=== PATIENT | female | born 1950 | race Caucasian/White ===

== ENCOUNTER 2021-04-07 15:03 | Outpatient (CLI) | payer MEDICARE ==
--- NOTE | 2021-04-07 16:52 | XRAY Report ---
PROCEDURE: Hip w/Pelvis 2-3V RT INDICATIONS: PAIN IN RIGHT HIP TECHNIQUE: AP pelvis with lateral view(s) of the bilateral hip(s). COMPARISON: None. FINDINGS: Bones: No fractures or dislocations. Pelvic ring appears intact. No suspicious bony lesions. Mode rate bilateral hip joint space narrowing and periarticular osteophyte formation. Osteitis pubis. Soft tissues: The visualized bowel gas pattern is normal. No suspicious soft tissue calcifications. IMPRESSION: 1. Bilateral hip osteoarthritis. 2. Osteitis pubis. 3. No acute fracture. No osseous lesion. If symptoms and/or clinical suspicion for pathology continue , further assessment with repeat plain films, or advanced imaging (e.g., CT, MRI, or bone scan) is re commended for further assessment. Reviewed by: Dwight White MD on 04/07/2021 4:50 PM PST Approved by: Dwight White MD on 04/07/2021 4:50 PM PST Station ID: [id number]
== END 2021-04-07 15:04 | disposition home or self-care (01) ==
LOC: DI 15:03
PROVIDERS: ATTEND Internal Medicine
DX: M16.0 Bilateral primary osteoarthritis of hip (principal)

== ENCOUNTER 2021-12-22 09:52 | Outpatient (CLI) | payer MEDICARE ==
[2021-12-22 10:15] LABS: BASOPHILS % (AUTO) 0.4 %; EOSINOPHILS # (AUTO) 0.1 10^3/uL (0.0-0.7); EOSINOPHILS % (AUTO) 2.6 %; HCT - HEMATOCRIT 30.6 % (37.0-47.0); HGB - HEMOGLOBIN 10.3 g/dL (12.0-16.0); LYMPHOCYTES % (AUTO) 19.2 %; MEAN CORPUSCULAR HEMOGLOBIN 30.4 pg (27.0-31.0); MEAN CORPUSCULAR HGB CONC 33.7 g/dL (32.0-36.0); MEAN CORPUSCULAR VOLUME 90.3 fL (81.0-99.0); MEAN PLATELET VOLUME 8.4 fL (7.9-10.8); MONOCYTES # (AUTO) 0.4 10^3/uL (0.0-1.0); MONOCYTES % (AUTO) 8.2 %; NEUTROPHILS # (AUTO) 3.7 10^3/uL (1.5-6.6); NEUTROPHILS % (AUTO) 69.2 %; PLT - PLATELET COUNT 232 10^3/uL (130-450); RED BLOOD COUNT 3.39 10^6/uL (4.20-5.40); RED CELL DISTRIBUTION WIDTH 12.9 % (12.0-15.0); WHITE BLOOD COUNT 5.4 x10^3/uL (4.8-10.8)
[2021-12-22 10:23] LABS: BILIRUBIN,URINE NEGATIVE (NEGATIVE); GLUCOSE, URINE (UA) NEGATIVE (NEGATIVE); KETONES,URINE (UA) NEGATIVE (NEGATIVE); LEUKOCYTE ESTERASE, URINE NEGATIVE (NEGATIVE); NITRITE,URINE NEGATIVE (NEGATIVE); OCCULT BLOOD,URINE NEGATIVE (NEGATIVE); PH,URINE 5.5 PH (5.0-7.5); PROTEIN,URINE NEGATIVE (NEGATIVE); UROBILINOGEN,URINE 0.2 (NORMAL) E.U./dL (NORMAL)
[2021-12-22 10:31] LABS: CREATININE,URINE 184.3 mg/dL; MICROALBUM/CREATININE RATIO,UR 8.1 ug/mg (<30.0); MICROALBUMIN,URINE 1.5 mg/dL (0-300.0)
[2021-12-22 10:36] LABS: ALBUMIN 4.2 g/dL (3.2-5.5); ALBUMIN/GLOBULIN RATIO 1.4 (1.0-2.2); ALKALINE PHOSPHATASE 51 IU/L (42-121); ALT ALANINE AMINOTRANSFERASE 26 IU/L (10-60); AST ASPARTATE AMINOTRANSFERASE 16 IU/L (10-42); BUN - BLOOD UREA NITROGEN 39 mg/dL (6-20); CALCIUM 9.4 mg/dL (8.5-10.3); CARBON DIOXIDE - CO2 26 mmol/L (21-32); CHLORIDE 100 mmol/L (101-111); CHOL/HDL RATIO 6.9 (<4.4); CHOLESTEROL 247 mg/dL; CREATININE 1.6 mg/dL (0.4-1.0); GFR - MDRD 32 (>89); GLUCOSE 175 mg/dL (70-100); HDL CHOLESTEROL 36 mg/dL; LDL CHOLESTEROL,CALCULATED 162 mg/dL; LDL/HDL RATIO 4.5 (<4.4); POTASSIUM 4.5 mmol/L (3.5-5.0); SODIUM 135 mmol/L (135-145); TOTAL PROTEIN 7.1 g/dL (6.7-8.2); TRIGLYCERIDES 243 mg/dL; VLDL CHOLESTEROL 49 mg/dL
[2021-12-22 10:40] LABS: BACTERIA,URINE Few /HPF (None Seen); CLARITY,URINE CLEAR (CLEAR); RBC,URINE None Seen /HPF (0-5); SQUAMOUS EPITHELIAL CELL,UR FEW Squamous (<= Few); WBC,URINE 0-3 /HPF (0-5)
[2021-12-22 12:58] LABS: ESTIMATED AVERAGE GLUCOSE 169 mg/dL (70-100); HEMOGLOBIN A1c% 7.5 % (4.27-6.07)
[2021-12-23 08:10] LABS: HCV AB 0.2 s/co ratio (0.0-0.9)
== END 2021-12-22 09:53 | disposition home or self-care (01) ==
LOC: LAB 09:52
PROVIDERS: ATTEND Internal Medicine
DX: E11.9 Type 2 diabetes mellitus without complications (principal); I10 Essential (primary) hypertension; N32.81 Overactive bladder; Z79.899 Other long term (current) drug therapy; Z11.59 Encounter for screening for other viral diseases
CPT/HCPCS: 36415; 80053; 80061; 81001; 82043; 82570; 83036; 83721; 84443; 85025; 86803; 87086

== ENCOUNTER 2022-01-24 08:00 | Outpatient (CLI) | payer MEDICARE ==
--- NOTE | 2022-01-25 10:02 | XRAY Report ---
PROCEDURE: Hip 2 View RT INDICATIONS: ] Vein TECHNIQUE: Two views of the hip were acquired. COMPARISON: None. FINDINGS: Moderate bilateral hip osteoarthritis with joint space narrowing and subchondral sclerosis and subcho ndral cystic change. Marginal osteophytes noted. IMPRESSION: Moderate bilateral hip osteoarthritis. Reviewed by: George Mcneal MD on 01/25/2022 10:00 AM PDT Approved by: George Mcneal MD on 01/25/2022 10:00 AM PDT Station ID: [id number]
== END 2022-01-24 23:59 | disposition home or self-care (01) ==
LOC: DI.WOS 08:00
PROVIDERS: ATTEND Physician Assistant
DX: M16.11 Unilateral primary osteoarthritis, right hip (principal)

== ENCOUNTER 2022-07-04 15:23 | Emergency (ER) | payer MEDICARE ==
[2022-07-04] MEDS ORDERED: KETOROLAC 60 MG/2 ML VIAL IM STA (15:42)
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
--- NOTE | 2022-07-04 16:29 | CT Report ---
PROCEDURE: PELVIS WO INDICATIONS: fall, coccys/hip inj TECHNIQUE: Noncontrast 3 mm axial sections acquired through the bony pelvis, with coronal and sagittal reformatt ing. For radiation dose reduction, the following was used: automated exposure control, adjustment of mA and/or kV according to patient size. COMPARISON: Right hip radiograph dated 01/24/2022. FINDINGS: Image quality: Excellent. Bones: Pelvic ring is intact. No acute pelvic or hip fracture. No hip dislocation. No acute sacral o r coccygeal fracture. Sacral and coccygeal alignment is anatomic. Osteoarthritic changes are noted in bilateral hip joints. No evidence of avascular necrosis of femoral head. Osteoarthritic changes also seen in bilateral sacroiliac joints and symphysis pubis. No ankylosis or bony erosion is seen. Degen erative disc disease in visualized lower lumbar spine is seen. No acute vertebral body compression fr acture. 7 mm anterolisthesis of L4 on L5 is seen. Soft tissues: There is no presacral soft tissue abnormalities. No pelvic free fluid of free air. No abnormal bowel wall thickening. Sigmoid diverticulosis is seen without colonic wall thickening or mes enteric fat stranding. Uterus and bilateral adnexa show no gross abnormality. Bladder wall thickness is normal. No abnormality is seen in pelvic or hip soft tissues. No abnormal soft tissue calcificatio ns. IMPRESSION: 1. No evidence of acute coccygeal fracture. No acute pelvic or hip fracture. No hip dislocation. 2. Osteoarthritic changes throughout bony pelvis. No evidence of avascular necrosis of femoral head. 3. Degenerative disc disease in visualized lower lumbar spine. Grade 1 anterolisthesis of L4 on L5. 4. No gross pelvic or hip soft tissue abnormalities. Reviewed by: Paul Little MD on 07/04/2022 4:28 PM PST Approved by: Paul Little MD on 07/04/2022 4:28 PM PST Station ID: [id number]
[2022-07-04 16:59] VITALS: BP 140/80
== END 2022-07-04 16:58 | disposition home or self-care (01) ==
LOC: ED 15:23
DX: S20.229A Contusion of unspecified back wall of thorax, initial encounter (principal); W08.XXXA Fall from other furniture, initial encounter; Y93.89 Activity, other specified
CPT/HCPCS: 96372; 99283; 99284

== ENCOUNTER 2022-10-19 13:59 | Outpatient (CLI) | payer MEDICARE ==
--- NOTE | 2022-10-31 10:19 | Mammography Report ---
BILATERAL DIGITAL SCREENING MAMMOGRAM 3D/2D WITH AUGMENTATION: 10/19/2022 CLINICAL: Routine screening. Personal history of right breast cancer. No prior exams were available for comparison. There are scattered areas of fibroglandular density in both breasts (category b / 25%-50% glandular t issue). Bilateral breast implants are present. There are benign post operative findings and biopsy clip in t he right breast. No significant masses, calcifications, or other findings are seen in either breast. IMPRESSION: BENIGN There is no mammographic evidence of malignancy. A 1 year screening mammogram is recommended. This exam was interpreted at Station ID: [id number]. NOTE: For mammograms, a report in lay terms will be sent to the patient. Approximately 15% of breast malignancies will not be visualized mammographically. In the management of a palpable breast mass, a negative mammogram must not discourage biopsy of a clinically suspicious lesion. Electronically Signed By: Carlos Rainey M.D. at/sen:10/28/2022 10:31:33 letter sent: No_Letter ACR BI-RADS Category 2: Benign Finding(s) 3342F PARENCHYMAL PATTERN: (A) - The breast(s) demonstrate(s) scattered fibroglandular densities. BI-RADS CATEGORY: (2) - 2 Mammogram [id number] 1 year screening LATERALITY: (B)
== END 2022-10-19 14:00 | disposition home or self-care (01) ==
LOC: DI 13:59
DX: Z12.31 Encounter for screening mammogram for malignant neoplasm of breast (principal); Z85.3 Personal history of malignant neoplasm of breast

== ENCOUNTER 2022-10-31 10:38 | Outpatient (CLI) | payer MEDICARE ==
[2022-10-31 10:52] LABS: HGB - HEMOGLOBIN 10.3 g/dL (12.0-16.0); MEAN PLATELET VOLUME 8.9 fL (7.9-10.8); MONOCYTES # (AUTO) 0.4 10^3/uL (0.0-1.0)
[2022-10-31 10:56] LABS: BASOPHILS % (AUTO) 0.5 %; EOSINOPHILS # (AUTO) 0.4 10^3/uL (0.0-0.7); EOSINOPHILS % (AUTO) 7.1 %; HCT - HEMATOCRIT 32.3 % (37.0-47.0); LYMPHOCYTES % (AUTO) 17.8 %; MEAN CORPUSCULAR HEMOGLOBIN 30.2 pg (27.0-31.0); MEAN CORPUSCULAR HGB CONC 31.9 g/dL (32.0-36.0); MEAN CORPUSCULAR VOLUME 94.7 fL (81.0-99.0); MONOCYTES % (AUTO) 6.4 %; NEUTROPHILS # (AUTO) 3.7 10^3/uL (1.5-6.6); NEUTROPHILS % (AUTO) 67.8 %; PLT - PLATELET COUNT 259 10^3/uL (130-450); RED BLOOD COUNT 3.41 10^6/uL (4.20-5.40); RED CELL DISTRIBUTION WIDTH 12.9 % (12.0-15.0); WHITE BLOOD COUNT 5.5 x10^3/uL (4.8-10.8)
[2022-10-31 11:00] LABS: BILIRUBIN,URINE NEGATIVE (NEGATIVE); GLUCOSE, URINE (UA) NEGATIVE (NEGATIVE); KETONES,URINE (UA) NEGATIVE (NEGATIVE); LEUKOCYTE ESTERASE, URINE NEGATIVE (NEGATIVE); NITRITE,URINE NEGATIVE (NEGATIVE); OCCULT BLOOD,URINE NEGATIVE (NEGATIVE); PH,URINE 5.5 PH (5.0-7.5); PROTEIN,URINE NEGATIVE (NEGATIVE); UROBILINOGEN,URINE 0.2 (NORMAL) E.U./dL (NORMAL)
[2022-10-31 11:11] LABS: ALBUMIN/GLOBULIN RATIO 1.3 (1.0-2.2); ALKALINE PHOSPHATASE 52 IU/L (42-121); ALT ALANINE AMINOTRANSFERASE 21 IU/L (10-60); AST ASPARTATE AMINOTRANSFERASE 17 IU/L (10-42); BILIRUBIN,TOTAL 0.7 mg/dL (0.2-1.0); BUN - BLOOD UREA NITROGEN 42 mg/dL (6-20); CALCIUM 8.9 mg/dL (8.5-10.3); CARBON DIOXIDE - CO2 27 mmol/L (21-32); CHLORIDE 104 mmol/L (101-111); CHOL/HDL RATIO 7.2 (<4.4); CHOLESTEROL 275 mg/dL; CREATININE 1.5 mg/dL (0.4-1.0); CREATININE,URINE 24.2 mg/dL; GFR - MDRD 34 (>89); GLUCOSE 152 mg/dL (70-100); HDL CHOLESTEROL 38 mg/dL; LDL CHOLESTEROL,CALCULATED 181 mg/dL; LDL/HDL RATIO 4.8 (<4.4); MAGNESIUM 2.2 mg/dL (1.7-2.8); MICROALBUM/CREATININE RATIO,UR 16.5 ug/mg (<30.0); MICROALBUMIN,URINE 0.4 mg/dL (0-300.0); POTASSIUM 4.8 mmol/L (3.5-5.0); SODIUM 137 mmol/L (135-145); TOTAL PROTEIN 7.2 g/dL (6.7-8.2); TRIGLYCERIDES 278 mg/dL; VLDL CHOLESTEROL 56 mg/dL
[2022-10-31 11:23] LABS: CLARITY,URINE CLEAR (CLEAR)
[2022-10-31 11:24] LABS: BACTERIA,URINE Rare /HPF (None Seen); RBC,URINE 0-5 /HPF (0-5); SQUAMOUS EPITHELIAL CELL,UR NONE SEEN (<= Few); WBC,URINE 0-3 /HPF (0-5)
[2022-10-31 14:28] LABS: ESTIMATED AVERAGE GLUCOSE 143 mg/dL (70-100); HEMOGLOBIN A1c% 6.6 % (4.27-6.07)
== END 2022-10-31 10:39 | disposition home or self-care (01) ==
LOC: LAB 10:38
PROVIDERS: ATTEND Internal Medicine
DX: I12.9 Hypertensive chronic kidney disease with stage 1 through stage 4 chronic kidney disease, or unspecified chronic kidney disease (principal); E11.22 Type 2 diabetes mellitus with diabetic chronic kidney disease; N18.9 Chronic kidney disease, unspecified; D64.9 Anemia, unspecified; C44.91 Basal cell carcinoma of skin, unspecified; C50.919 Malignant neoplasm of unspecified site of unspecified female breast; E78.5 Hyperlipidemia, unspecified; R00.2 Palpitations; Z79.899 Other long term (current) drug therapy
CPT/HCPCS: 36415; 80053; 80061; 81001; 82043; 82570; 83036; 83721; 83735; 84443; 85025; 87086

== ENCOUNTER 2023-03-30 13:26 | Outpatient (CLI) | payer MEDICARE ==
--- NOTE | 2023-03-30 16:48 | XRAY Report ---
PROCEDURE: Lumbar Spine 2 View INDICATIONS: LOW BACK PAIN TECHNIQUE: 3 views of the lumbar spine were acquired. COMPARISON: None. FINDINGS: Bones: 5 yxv-ada-nyhxyha vertebrae are present. There is normal bony alignment. No vertebral body compression fractures. No suspicious bony lesions. Multilevel disc space narrowing and endplate ost eophyte formation, as well as facet hypertrophy. 10 mm of anterolisthesis of L4 on L5. Soft tissues: Overlying bowel gas pattern is normal. No suspicious soft tissue calcifications. IMPRESSION: 1. Multilevel degenerative disc and facet disease. 2. No acute fracture. No osseous lesion. If symptoms and/or clinical suspicion for pathology continue , further assessment with repeat plain films, or advanced imaging (e.g., CT, MRI, or bone scan) is re commended for further assessment. Reviewed by: Dwight White MD on 03/30/2023 4:47 PM PDT Approved by: Dwight White MD on 03/30/2023 4:47 PM PDT Station ID: [id number]
== END 2023-03-30 13:27 | disposition home or self-care (01) ==
LOC: DI 13:26
PROVIDERS: ATTEND Internal Medicine
DX: M51.36 Other intervertebral disc degeneration, lumbar region (principal); M47.816 Spondylosis without myelopathy or radiculopathy, lumbar region

== ENCOUNTER 2023-04-15 13:15 | Outpatient (CLI) | payer MEDICARE ==
--- NOTE | 2023-04-17 08:55 | MRI Report ---
PROCEDURE: LUMBAR SPINE WO INDICATIONS: LOW BACK PAIN TECHNIQUE: Noncontrast sagittal T1 spin echo and T2 fast echo, sagittal STIR, axial T1 and T2 fast spin echo thr ough the lumbar spine. In cases with scoliosis, additional coronal T2 fast spin echo may be performe d. COMPARISON: Lumbar spine plain films dated 03/30/2023. FINDINGS: Image quality: Excellent. Alignment and Curvature: Trace anterolisthesis of L4 on L5. Bone Marrow: Marrow is of normal overall signal. No acute vertebral body compression fractures. Spinal Cord: Conus medullaris terminates at the L1-L2 level. Visualized cord demonstrates normal si gnal and size. Paraspinous Soft Tissues: No paravertebral masses. T12-L1: Mild disc bulge. No canal stenosis or foraminal stenosis. L1-L2: Mild disc bulge. No canal stenosis or foraminal stenosis. L2-L3: Disc bulge. Facet hypertrophy. Mild canal stenosis. Mild to moderate left foraminal stenosi s. L3-L4: Disc bulge. Facet hypertrophy. No significant canal stenosis. Mild bilateral foraminal steno sis. L4-L5: Prominent facet hypertrophy. Disc bulge. Moderate canal stenosis. Mild to moderate right for aminal narrowing. Moderate left foraminal narrowing with flattening deformity on the exiting left L4 nerve root. L5-S1: Prominent facet hypertrophy. Disc bulge. No canal stenosis. Mild to moderate bilateral isabel inal narrowing. IMPRESSION: 1. There is multilevel underlying facet arthropathy, prominent at L4-L5 and L5-S1. 2. Canal stenosis is mild at L2-L3 and moderate at L4-L5. 3. Multilevel foraminal narrowing as described above. Findings include moderate left foraminal narrow ing at L4-5. Reviewed by: Param Castillo MD on 04/17/2023 8:54 AM PST Approved by: Param Castillo MD on 04/17/2023 8:54 AM PST Station ID: [id number]
== END 2023-04-15 13:16 | disposition home or self-care (01) ==
LOC: DI 13:15
PROVIDERS: ATTEND Internal Medicine
DX: M47.816 Spondylosis without myelopathy or radiculopathy, lumbar region (principal); M47.817 Spondylosis without myelopathy or radiculopathy, lumbosacral region; M48.061 Spinal stenosis, lumbar region without neurogenic claudication

== ENCOUNTER 2023-12-08 14:18 | Outpatient (CLI) | payer MEDICARE ==
[~2023-12-08 14:18] MED LIST: GADOTERATE MEGLUMINE 10 MMOL/20 ML VIAL ONE
--- NOTE | 2023-12-08 16:45 | MRI Report ---
PROCEDURE: Knee RT WO INDICATIONS: R KNEE PAIN TECHNIQUE: Noncontrast sagittal PD fast spin echo and T2 fast spin echo with fat saturation, sagittal 3-D gradie nt sequence with fat saturation; coronal T1 spin echo and PD fast spin echo with fat saturation, and axial PD fast spin echo with fat saturation through the knee. COMPARISON: None. FINDINGS: Image quality: Diagnostic Menisci Medial: Horizontal tear of the posterior horn. Macerated body. The root still appears attached. There is partial extrusion of the body. Lateral: Intact. Meniscopopliteal fascicles maintained. Cruciate ligaments: Intact Medial structures MCL: Intact Pes anserine tendons: Intact Semimembranosus: Intact Lateral structures LCL: Mild to moderate focal signal abnormality at the proximal aspect Biceps femoris: Intact IT band: Intact Popliteus tendon: Intact Anterior structures Extensor mechanism: Intact Fat pads: Mild Hoffa's fat pad edema Medial retinaculum: Intact. Trochlea: Slight lateral patellar tilt Bone and joint Bones: No fracture, dislocation, or suspicious edema Cartilage: Multifocal full-thickness defects in the patellar cartilage involving particularly the med kimberlee ridge. There are areas of subchondral edema. More advanced cartilage loss is also seen medial com partment, with minimal subchondral edema. Trochlear sulcus subchondral edema or full-thickness fissur ing also present. Joint space: Moderate joint effusion. Reid's cyst: Moderate complex Reid's cyst Soft tissues: Mild diffuse subcutaneous edema IMPRESSION: Macerated body of the medial meniscus with partial extrusion. A horizontal tear extends to the sack sorter ior horn. Sprain of the LCL. Intact cruciate ligaments. Moderate overall arthrosis, with full-thickness fissuring in the medial compartment and multiple defe cts in the patellofemoral compartment. Areas of subchondral edema are seen. Slight lateral patellar tilt. Moderate joint effusion and moderately complex Reid's cyst. Reviewed by: Ze Pink MD on 12/08/2023 4:43 PM PDT Approved by: Ze Pink MD on 12/08/2023 4:43 PM PDT Station ID: [id number]
== END 2023-12-08 14:19 | disposition home or self-care (01) ==
LOC: DI 14:18
PROVIDERS: ATTEND Internal Medicine
DX: S83.241A Other tear of medial meniscus, current injury, right knee, initial encounter (principal); S83.421A Sprain of lateral collateral ligament of right knee, initial encounter; M17.11 Unilateral primary osteoarthritis, right knee; M25.461 Effusion, right knee; M71.21 Synovial cyst of popliteal space [Baker], right knee
CPT/HCPCS: 73721; A9575

== ENCOUNTER 2023-12-20 14:25 | Outpatient (CLI) | payer MEDICARE ==
--- NOTE | 2023-12-21 09:13 | Mammography Report ---
BILATERAL DIGITAL SCREENING MAMMOGRAM 3D/2D WITH AUGMENTATION: 12/20/2023 CLINICAL: Routine screening. Comparison is made to exams dated: 10/19/2022 mammogram - [facility], 09/15/2020 [facility] mogram, and 07/19/2019 mammogram. There are scattered areas of fibroglandular density in both breasts (category b / 25%-50% glandular t issue). Bilateral breast implants are present. There are benign post operative findings and biopsy clip in t he right breast. No significant masses, calcifications, or other findings are seen in either breast. There has been no significant interval change. IMPRESSION: BENIGN There is no mammographic evidence of malignancy. A 1 year screening mammogram is recommended. This exam was interpreted at Station ID: [id number]. NOTE: For mammograms, a report in lay terms will be sent to the patient. Approximately 15% of breast malignancies will not be visualized mammographically. In the management of a palpable breast mass, a negative mammogram must not discourage biopsy of a clinically suspicious lesion. Electronically Signed By: Bg silva/sen:12/20/2023 16:13:45 letter sent: No_Letter ACR BI-RADS Category 2: Benign Finding(s) 3342F PARENCHYMAL PATTERN: (A) - The breast(s) demonstrate(s) scattered fibroglandular densities. BI-RADS CATEGORY: (2) - 2 RECOMMENDATION: (ANNUAL) - Recommend routine annual screening mammography. [id number] 1 year screening LATERALITY: (B)
== END 2023-12-20 14:26 | disposition home or self-care (01) ==
LOC: DI 14:25
PROVIDERS: ATTEND Internal Medicine
DX: Z12.31 Encounter for screening mammogram for malignant neoplasm of breast (principal); R92.323 Mammographic fibroglandular density, bilateral breasts; Z98.82 Breast implant status

== ENCOUNTER 2024-02-07 10:50 | Outpatient (CLI) | payer MEDICARE ==
[2024-02-07 11:11] LABS: BASOPHILS % (AUTO) 0.7 %; EOSINOPHILS # (AUTO) 0.3 10^3/uL (0.0-0.7); EOSINOPHILS % (AUTO) 5.5 %; HCT - HEMATOCRIT 30.7 % (37.0-47.0); HGB - HEMOGLOBIN 9.4 g/dL (12.0-16.0); LYMPHOCYTES # (AUTO) 1.3 10^3/uL (1.5-3.5); LYMPHOCYTES % (AUTO) 20.8 %; MEAN CORPUSCULAR HEMOGLOBIN 29.5 pg (27.0-31.0); MEAN CORPUSCULAR HGB CONC 30.6 g/dL (32.0-36.0); MEAN CORPUSCULAR VOLUME 96.2 fL (81.0-99.0); MEAN PLATELET VOLUME 8.8 fL (7.9-10.8); MONOCYTES # (AUTO) 0.4 10^3/uL (0.0-1.0); MONOCYTES % (AUTO) 6.8 %; NEUTROPHILS % (AUTO) 65.7 %; PLT - PLATELET COUNT 271 10^3/uL (130-450); RED BLOOD COUNT 3.19 10^6/uL (4.20-5.40); RED CELL DISTRIBUTION WIDTH 12.6 % (12.0-15.0); WHITE BLOOD COUNT 6.1 x10^3/uL (4.8-10.8)
[2024-02-07 11:26] LABS: BILIRUBIN,URINE NEGATIVE (NEGATIVE); GLUCOSE, URINE (UA) NEGATIVE (NEGATIVE); KETONES,URINE (UA) NEGATIVE (NEGATIVE); LEUKOCYTE ESTERASE, URINE NEGATIVE (NEGATIVE); NITRITE,URINE NEGATIVE (NEGATIVE); OCCULT BLOOD,URINE NEGATIVE (NEGATIVE); PH,URINE 5.5 PH (5.0-7.5); PROTEIN,URINE NEGATIVE (NEGATIVE); UROBILINOGEN,URINE 0.2 (NORMAL) E.U./dL (NORMAL)
[2024-02-07 11:28] LABS: CLARITY,URINE CLEAR (CLEAR)
[2024-02-07 11:42] LABS: ESTIMATED AVERAGE GLUCOSE 148 mg/dL (70-100); HEMOGLOBIN A1c% 6.8 % (4.27-6.07)
[2024-02-07 11:47] LABS: BACTERIA,URINE Rare /HPF (None Seen); RBC,URINE 0-5 /HPF (0-5); SQUAMOUS EPITHELIAL CELL,UR FEW Squamous (<= Few); WBC,URINE 0-3 /HPF (0-5)
== END 2024-02-07 10:51 | disposition home or self-care (01) ==
LOC: LAB 10:50
PROVIDERS: ATTEND Orthopaedic Surgery
DX: Z01.812 Encounter for preprocedural laboratory examination (principal); R73.9 Hyperglycemia, unspecified; N39.0 Urinary tract infection, site not specified
CPT/HCPCS: 36415; 81001; 83036; 85025; 87086

== ENCOUNTER 2024-03-06 16:39 | Observation (INO) ==
--- NOTE | 2024-03-06 17:04 | ED Physician Documentation ---
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 History clarified from triage notes. Patient states that she has been doing overall well since her right knee replacement a few weeks ago in [facility], with no new knee pain, swelling, discharge, or rash. However, yesterday, when she was doing her first physical therapy, she noted shortness of breath and pleuritic chest pain, along with episodes of tachycardia. She has a distant history of atrial fibrillation, roughly a decade ago, not on anticoagulation or rate controlling medications as she does not believe it recurred. She also thinks she may have had a pulmonary embolism in the past, though states this was not formally diagnosed. Right lower extremity is swollen, though unchanged over the last week. She is taking oxycodone, Tylenol at home. She has been taking her blood pressure, which has been normal for her. However, heart rate has ranged from low to high 100s per pulse ox monitor. She has felt palpitations. She denies syncope though has felt lightheaded. She denies objective fevers or chills, though a temperature near 100 per report en route here. She denies back or flank or abdominal pain, nausea or vomiting or diarrhea, trauma, cough, sore throat, rhinorrhea, or other new concerns. She denies antibiotic allergies. 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 Per chart review, she was seen in January with oncology with plan for ultimate bone marrow biopsy regarding her abnormal kappa/lambda ratio. She was following up for normocytic anemia too. There was also plan for outpatient knee replacement. Review of Systems ROS Constitutional: no fever, no chills Eyes: no visual disturbance, no discharge Ears, Nose, Mouth, Throat: no rhinorrhea, no sore throat Cardiovascular: +chest pain, +palpitations Respiratory: no cough, +shortness of breath Gastrointestinal: no abdominal pain, no vomiting, no diarrhea Genitourinary: no dysuria, no hematuria Musculoskeletal: no back pain, no neck stiffness Skin: no rash, no wound Neurological: no focal weakness, no focal numbness Meds/Allgy Home Medications Ambulatory Orders Medication Instructions Recorded Confirmed albuterol sulfate 90 mcg/actuation 2 inh inhalation PRN PRN Asthma 08/23/21 03/06/24 aerosol inhaler (Ventolin HFA) ascorbic acid (vitamin C) 500 mg 1 tab ORAL DAILY 08/23/21 03/06/24 capsule biotin 5 mg capsule 5 mg ORAL DAILY 08/23/21 03/06/24 cholecalciferol (vitamin D3) 125 1 tab ORAL DAILY 08/23/21 03/06/24 mcg (5,000 unit) capsule citalopram 10 mg tablet 20 mg ORAL DAILY 08/23/21 03/06/24 insulin NPH-regular 70-30 U-100 14 - 18 units SQ BID 08/23/21 03/06/24 insulin 100 unit/mL subcutaneous pen (Humulin 70/30 U-100 KwikPen) lisinopril 20 mg tablet (Zestril) 20 mg ORAL DAILY 08/23/21 03/06/24 loratadine 10 mg tablet 10 mg ORAL DAILY 08/23/21 03/06/24 multivitamin 1 tab ORAL DAILY 08/23/21 03/06/24 Oxybutynin Chloride 5 mg PO BID 02/14/24 03/06/24 Allergies Allergies Allergy/AdvReac Type Severity Reaction Status Date / Time acetaminophen (From Vicodin) AdvReac Unknown Verified 08/08/22 17:22 codeine AdvReac Nausea Verified 07/04/22 15:32 diltiazem AdvReac Unknown Verified 07/04/22 15:32 gabapentin AdvReac Cramps Verified 07/04/22 15:32 hydrocodone (From Vicodin) AdvReac Unknown Verified 08/08/22 17:22 [facility] Medical History Medical History (Updated 03/06/24 @ 16:48 by Cesilia Lepe, RN, BSN) Unspecified arthropathy, shoulder region Anemia Breast cancer, stage 0 Hypertension Diabetes Surgical History Surgical History (Updated 03/06/24 @ 16:48 by Cesilia Lepe, RN, BSN) Knee joint replacement status S/P tonsillectomy History of section Social History Social History (Updated 03/06/24 @ 16:48 by Cesilia Lepe, RN, BSN) Smoking Status: Unknown if ever smoked Living arrangement: At home Relationship: Do you feel safe in your home environment?: Yes Suffered physical, verbal, emotional, or financial abuse?: No POLST Patient has POLST: No Exam Exam Const: no acute distress, non toxic appearing; calm, conversant, pleasant; speaking in full sentences without issue Eyes: PERRLA, EOMI ENT: mucous membranes moist Neck: supple, non-tender Resp: no respiratory distress, clear to auscultation bilaterally Card: regular rate and rhythm, no murmurs; no chest wall tenderness Abd: non tender diffusely, no rigidity or rebound or guarding Back: no T or L spine tenderness, no CVA tenderness bilaterally Extrem: no deformities; RLE with clean, dry, intact anterior R knee incision without surrounding erythema, tenderness or discharge; partial active ROM of knee without pain; RLE is asymmetrically swollen relative to left, with intact 2+ distal pulses and <2s cap refill, intact strength and sensation Neuro: ANOx4, shoes hand sewer grossly intact, grossly intact sensation and strength all extremities Skin: no rash, warm and dry Results Vitals Vitals: Vital Signs - 24 hr 03/06/24 16:40 03/06/24 16:54 03/06/24 18:25 Temperature 37.6 C Temperature Source Oral Pulse Rate 91 H 88 94 H Respiratory Rate 18 18 18 Blood Pressure 177/72 H O2 Saturation 96 98 O2 Source Room air Room air Room air Pain Intensity 0 4 03/06/24 18:39 Temperature Temperature Source Pulse Rate Respiratory Rate Blood Pressure 190/67 H O2 Saturation O2 Source Pain Intensity 5 Oxygen O2 Source Room air Labs Labs: Laboratory Tests 03/06/24 18:03 WBC 6.3 RBC 2.30 L Hgb 6.8 L* Hct 21.7 L MCV 94.3 MCH 29.6 MCHC 31.3 L RDW 12.8 Plt Count 304 MPV 8.7 Neut # (Auto) 4.7 Lymph # (Auto) 0.8 L [place] # (Auto) 0.6 Eos # (Auto) 0.1 Baso # (Auto) 0.0 Absolute Nucleated RBC 0.00 Nucleated RBC % 0.0 Sodium 137 Potassium 4.6 H Chloride 103 Carbon Dioxide 27 Anion Gap 7.0 BUN 28 H Creatinine 1.3 Estimated GFR (MDRD) 40 L Glucose 182 H Calcium 9.0 Total Bilirubin 0.6 AST 10 ALT 9 L Alkaline Phosphatase 43 Troponin I High Sens 16.0 H* Total Protein 6.5 Albumin 3.4 Globulin 3.1 Albumin/Globulin Ratio 1.1 PD Medical Decision Making ED course ED course: This patient with history of potential hematologic malignancy being worked up, possible prior pulmonary embolism, and recent knee surgery presents with chest pain, shortness of breath, asymmetrically swollen right lower extremity. In this setting, I am obtaining CTA PE study to assess for pulmonary embolism, or less likely pneumonia. I am obtaining EKG to assess for arrhythmia, troponin to assess for cardiac injury, though ACS is less consistent with this presentation. I am also obtaining right lower extremity venous ultrasound to assess for DVT. 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 I am also obtaining CBC, CMP, urinalysis, viral swab and will closely reassess. Patient understands and agrees with plan. EKG normal sinus rhythm without acute ischemia or immediately concerning interval prolongation Note labs and imaging delayed due to difficult IV access. - PROCEDURE: Ultrasound guided peripheral IV placement Indication: Difficult IV access and IV necessary for treatment On first attempt, I placed 20g PIV in the LUE AC using continuous ultrasound guidance. Patient tolerated procedure well. - Labs: Some lab work is pending, however initial CBC returned with no leukocytosis, however hemoglobin of 6.8, with normal MCV, no thrombocytopenia; this is concerning to me for potential production issue, with bone marrow involvement of an undiagnosed hematologic malignancy possible. Bleeding is also certainly possible, though blood loss from a knee replacement would not typically be extreme. Note hemoglobin was 9.6 late January, a roughly 3 point drop. CMP with borderline hyperkalemia, overall grossly reassuring. Remainder of lab workup pending at this time. At this juncture, I suspect symptomatic anemia has driven this patient's chest pain, shortness of breath, and prior reported tachycardia. She does appear stable, currently well-perfused. She will require blood, completion of workup and reassessment. I consented patient for transfusion. Note troponin returned borderline elevated and should be trended, however patient has no active current chest pain, without clear acute ischemia on EKG. Currently, this seems most likely NSTEMI II secondary to anemia. Troponin should be repeated at roughly 8 PM. Signing out at 1900 with plan to transfuse 1u pRBC, follow up CT and US and UA/remainder of labs, then reassess. Troponin/EKG should be repeated at ~2000. Discharge Plan Discharge Prescriptions: No Action multivitamin 1 EACH tablet 1 tab ORAL DAILY biotin 5 MG capsule 5 mg ORAL DAILY citalopram 10 MG tablet 20 mg ORAL DAILY lisinopril [Zestril] 20 MG tablet 20 mg ORAL DAILY albuterol sulfate [Ventolin HFA] 200 PUFFS/18 GM HFA aerosol inhaler 2 inh inhalation PRN PRN (Reason: Asthma) cholecalciferol (vitamin D3) 5,000 UNIT capsule 1 tab ORAL DAILY loratadine 10 MG tablet 10 mg ORAL DAILY Humulin 70/30 U-100 KwikPen 100 UNIT/ML insulin pen 14 - 18 units SQ BID ascorbic acid (vitamin C) 500 MG capsule 1 tab ORAL DAILY Oxybutynin Chloride 5 MG Tablet 5 mg PO BID Print Language: Arabic Stand Alone Forms: PCP List
[2024-03-06] MEDS ORDERED: iohexoL-300 100 ML VIAL ONE (17:42)
[2024-03-06 18:13] LABS: BASOPHILS % (AUTO) 0.3 %; EOSINOPHILS # (AUTO) 0.1 10^3/uL (0.0-0.7); EOSINOPHILS % (AUTO) 1.6 %; HCT - HEMATOCRIT 21.7 % (37.0-47.0); LYMPHOCYTES # (AUTO) 0.8 10^3/uL (1.5-3.5); LYMPHOCYTES % (AUTO) 12.4 %; MEAN CORPUSCULAR HEMOGLOBIN 29.6 pg (27.0-31.0); MEAN CORPUSCULAR HGB CONC 31.3 g/dL (32.0-36.0); MEAN CORPUSCULAR VOLUME 94.3 fL (81.0-99.0); MEAN PLATELET VOLUME 8.7 fL (7.9-10.8); MONOCYTES # (AUTO) 0.6 10^3/uL (0.0-1.0); MONOCYTES % (AUTO) 9.9 %; NEUTROPHILS # (AUTO) 4.7 10^3/uL (1.5-6.6); NEUTROPHILS % (AUTO) 75.2 %; PLT - PLATELET COUNT 304 10^3/uL (130-450); RED CELL DISTRIBUTION WIDTH 12.8 % (12.0-15.0); WHITE BLOOD COUNT 6.3 x10^3/uL (4.8-10.8)
[2024-03-06 18:18] LABS: HGB - HEMOGLOBIN 6.8 g/dL (12.0-16.0)
[2024-03-06 18:26] LABS: ALBUMIN 3.4 g/dL (3.2-5.5); ALBUMIN/GLOBULIN RATIO 1.1 (1.0-2.2); BILIRUBIN,TOTAL 0.6 mg/dL (0.2-1.0); CREATININE 1.3 mg/dL (0.6-1.3); POTASSIUM 4.6 mmol/L (3.5-4.5); TOTAL PROTEIN 6.5 g/dL (6.4-8.9)
--- NOTE | 2024-03-06 19:09 | Ultrasound Report ---
PROCEDURE: US Venous Duplex RT INDICATIONS: assess for DVT TECHNIQUE: Real-time imaging, as well as color and pulse Doppler interrogation, were performed of the lower extr emity deep veins from the inguinal ligament to the popliteal fossa. Attempted visualization of the ca lf veins was performed. COMPARISON: None. FINDINGS: The deep veins are normally compressible, and free of intraluminal thrombus. Color and pu lse Doppler demonstrate normal phasic intraluminal flow. There is normal augmentation response to di stal compression maneuver. The calf veins were not well seen due to soft tissue edema. IMPRESSION: No deep venous thrombosis of the visualized lower extremity. Reviewed by: Ze Pink MD on 03/06/2024 7:08 PM PDT Approved by: Ze Pink MD on 03/06/2024 7:08 PM PDT Station ID: [id number]
[2024-03-06] MEDS: iohexoL-300 100 ML VIAL IVP ONE (19:19)
--- NOTE | 2024-03-06 19:24 | CT Report ---
PROCEDURE: CT Angio Chest INDICATIONS: rule out PE; SOB, chest pain, possible cancer CONTRAST: 80ml [id number] TECHNIQUE: After the administration of intravenous contrast, 2 mm axial images were acquired from the pulmonary apices to the posterior costophrenic angles during the arterial phase. In addition, 1 mm lung kernel and 5 mm soft tissue kernel reconstructions were performed. 3-dimensional coronal oblique maximum int ensity projection (MIP) reformats, 8 mm axial MIP, and 5 mm coronal and sagittal MPR reformats were t hen performed through the thorax. For radiation dose reduction, the following was used: automated exp osure control, adjustment of mA and/or kV according to patient size. COMPARISON: 02/23/2024 FINDINGS: Image quality: Mildly motion degraded Lungs and pleura:Mild subtle groundglass opacities Small right pleural effusion. Trace left pleural effusion. No overtly suspicious pulmonary nodules. Mediastinum, heart, and esophagus: No pulmonary embolism. The most distal pulmonary arteries are not well seen due to motion artifact. Mild distal esophageal wall thickening. Prominent mediastinal lymph nodes are likely present, not wel l seen on this arterial phase study. None appear enlarged by size criteria Chest wall and thyroid: There are breast implants. Chest wall is unremarkable. Upper abdomen: Unremarkable partially visualized upper abdomen Bones: No acute or suspicious osseous finding. Old right rib fractures are seen. IMPRESSION: Small right and trace left pleural effusions. There may be subtle small groundglass opacities in the lungs. These may represent edema versus infection/inflammation. Consider future imaging surveillance to assess for resolution. No acute pulmonary embolism. The distal most arteries are obscured by motion artifact. If there is high concern for malignancy, consider dedicated oncologic imaging with IV and oral contra st. Other findings above. Reviewed by: Ze Pink MD on 03/06/2024 7:23 PM PDT Approved by: Ze Pink MD on 03/06/2024 7:23 PM PDT Station ID: [id number]
[2024-03-06 20:38] LABS: INFLUENZA A- RESP PCR PANEL NOT DETECTED; INFLUENZA B - RESP PCR PANEL NOT DETECTED; RSV- RESP PCR PANEL NOT DETECTED; SARS-CoV-2 -RESP PCR PANEL NOT DETECTED
--- NOTE | 2024-03-06 21:03 | ED Physician Documentation ---
ED Addendum Addendum Addendum: I received sign out/turnover of care on this patient from Dr. Ivey; please see his note for complete H+P. In brief, the patient had an episode of rapid palpitations earlier in the day with subsequent dyspnea on exertion and fatigue. Found to be anemic with hgb 6.8. She is transfused one unit PRBC with repeat hgb 8.2. kidney function tests are comparable to previous results. hs-cTn mildly elevated (16) but 2-hour repeat without significant change (15.4). CTA chest without evidence of acute process including no evidence of PE. Results d/w patient. Plan was to then d/c home but patient says she would not be able to procure a ride until later in the morning and thus she is held overnight in ED pending means of transport back home. Discharge Plan Discharge Patient Disposition: Home, Self Care Condition: Good Clinical Impression: Anemia Qualifiers: Anemia type: unspecified type Qualified Code(s): D64.9 - Anemia, unspecified Prescriptions: No Action multivitamin 1 EACH tablet 1 tab ORAL DAILY biotin 5 MG capsule 5 mg ORAL DAILY citalopram 10 MG tablet 20 mg ORAL DAILY lisinopril [Zestril] 20 MG tablet 20 mg ORAL DAILY albuterol sulfate [Ventolin HFA] 200 PUFFS/18 GM HFA aerosol inhaler 2 inh inhalation PRN PRN (Reason: Asthma) cholecalciferol (vitamin D3) 5,000 UNIT capsule 1 tab ORAL DAILY loratadine 10 MG tablet 10 mg ORAL DAILY Humulin 70/30 U-100 KwikPen 100 UNIT/ML insulin pen 14 - 18 units SQ BID ascorbic acid (vitamin C) 500 MG capsule 1 tab ORAL DAILY Oxybutynin Chloride 5 MG Tablet 5 mg PO BID Activity Restrictions/Additional Instructions: Your blood tests revealed significant anemia tonight. Fortunately, with only 1 unit of red blood cell transfusion, your red blood cell level improved significantly and is no longer low enough to warrant further emergent treatment. It is not low enough to likely be causing any symptoms. The cause of your anemia is not apparent at this time. Contact your primary care provider in the morning when the office is open to arrange for immediate follow-up/reevaluation. Print Language: Setswana Patient Instructions: ED Anemia Type Not Specified Stand Alone Forms: PCP List
[2024-03-06 21:49] LABS: BILIRUBIN,URINE NEGATIVE (NEGATIVE); GLUCOSE, URINE (UA) NEGATIVE (NEGATIVE); KETONES,URINE (UA) NEGATIVE (NEGATIVE); LEUKOCYTE ESTERASE, URINE NEGATIVE (NEGATIVE); NITRITE,URINE NEGATIVE (NEGATIVE); OCCULT BLOOD,URINE NEGATIVE (NEGATIVE); PH,URINE 5.5 PH (5.0-7.5); PROTEIN,URINE NEGATIVE (NEGATIVE); UROBILINOGEN,URINE 0.2 (NORMAL) E.U./dL (NORMAL)
[2024-03-06 21:59] LABS: CLARITY,URINE CLEAR (CLEAR)
[2024-03-06 22:34] LABS: BACTERIA,URINE Rare /HPF (None Seen); RBC,URINE 0-5 /HPF (0-5); SQUAMOUS EPITHELIAL CELL,UR RARE Squamous (<= Few); WBC,URINE 0-3 /HPF (0-5)
[2024-03-07 02:54] LABS: HCT - HEMATOCRIT 25.5 % (37.0-47.0); HGB - HEMOGLOBIN 8.2 g/dL (12.0-16.0)
--- NOTE | 2024-03-07 10:56 | ED Physician Documentation ---
ED Addendum Addendum Addendum: Sign out at 0700. Patient stable overnight. Repeat troponin stable. She received blood. There was plan for discharge, and patient was going to arrange transport. However, patient stating she feels too generally weak to go home. Viral swab negative. Repeat Hgb 8.2. Urine without infection. CTA with possible GGO/trace effusions, with outpatient imaging reasonable. PLAN: patient does appear stable for discharge, however we are attempting ambulation with HR/SPO2 then will reassess. Ambulation trial: patient's HR increased roughly 40 points and she felt lightheaded. In this setting, I discussed admission with Dr. Sierra, who kindly accepted to obs status. I suspect anemia may still be contributory to symptoms, though patient will eventually need additional outpatient HemOnc work up and consideration of bone marrow biopsy. Admitting in stable condition. Discharge Plan Discharge Patient Disposition: [facility] DC/Xfer Condition: Good Clinical Impression: Anemia Qualifiers: Anemia type: unspecified type Qualified Code(s): D64.9 - Anemia, unspecified Prescriptions: No Action multivitamin 1 EACH tablet 1 tab ORAL DAILY biotin 5 MG capsule 5 mg ORAL DAILY citalopram 10 MG tablet 20 mg ORAL DAILY lisinopril [Zestril] 20 MG tablet 20 mg ORAL DAILY albuterol sulfate [Ventolin HFA] 200 PUFFS/18 GM HFA aerosol inhaler 2 inh inhalation PRN PRN (Reason: Asthma) cholecalciferol (vitamin D3) 5,000 UNIT capsule 1 tab ORAL DAILY loratadine 10 MG tablet 10 mg ORAL DAILY Humulin 70/30 U-100 KwikPen 100 UNIT/ML insulin pen 14 - 18 units SQ BID ascorbic acid (vitamin C) 500 MG capsule 1 tab ORAL DAILY Oxybutynin Chloride 5 MG Tablet 5 mg PO BID Activity Restrictions/Additional Instructions: Your blood tests revealed significant anemia tonight. Fortunately, with only 1 unit of red blood cell transfusion, your red blood cell level improved significantly and is no longer low enough to warrant further emergent treatment. It is not low enough to likely be causing any symptoms. The cause of your anemia is not apparent at this time. Contact your primary care provider in the morning when the office is open to arrange for immediate follow-up/reevaluation. Print Language: Icelandic
--- NOTE | 2024-03-07 14:00 | HISTORY & PHYSICAL EXAMINATION ---
Chief Complaint Chief Complaint Chief Complaint: Weak and tired History of Present Illness Admitted From Admitted From:: ed History Obtained From Records Reviewed: Most recent oncology note dated 02/14/2024. History obtained from: Patient History of Present Illness HPI Comment/Other: 73-year-old female who presented to the emergency department yesterday evening with complaints of feeling poorly. She had a knee replacement, a right total knee replacement about 2 weeks ago. She feels like she did well for the initial week but then started to feel like she was not continuing to improve. 2 days ago she went to physical therapy and started to have increased knee pain. When she came back into the house after physical therapy she stated that she took her heart rate and it was in the 140s. She said she laid down and rested and things gradually improved but overall her trajectory was not one of the improvement and therefore she did present to the emergency department yesterday. Since she has been in the emergency department she has received 1 unit of blood. Despite receiving 1 unit of blood she continues to feel too weak to go home. Her repeat hemoglobin was 8.2, however she remains orthostatic with an increase of 40 points that her heart rate with lightheaded symptomatology upon standing. She has a history of myelodysplastic syndrome. She is actively followed by oncology here at [facility]. She is currently considering bone marrow biopsy. She is currently scheduled for CT chest abdomen pelvis to evaluate for bony lesions or plasmacytomas. Since she has been in the emergency department she has had serial troponins. She has had a negative DVT study of her right lower extremity which is the operative leg. She has also had a negative CT pulmonary angiogram. It is due to her symptomatic anemia that she has been admitted for observation. She lives alone. She has a close friend Hortencia who helps her when she needs help at home. She lost her middle-age daughter to epithelial sarcoma about 6 months ago. She was down in [place] with her daughter when she . She continues to be very emotional regarding this situation. She has a significant other who lives in [place] who came up to help her for about a week after her knee replacement. She has 2 other daughters who live in [place]. As she has been recovering from her right knee replacement she is dependent on [employer] for her transportation but does get to outpatient PT using [employer]. She likes to cook and do crafts. She is also interested in genealogy Her previous PCP is Dr. Busby. Dr. Busby has retired but she is planning on staying with the practice and seeing someone there.Although she would be an trusted in switching to an internal medicine MD if 1 were available.. Meds/Allgy Home Medications Ambulatory Orders Medication Instructions Recorded Confirmed albuterol sulfate 90 mcg/actuation 2 inh inhalation PRN PRN Asthma 08/23/21 03/06/24 aerosol inhaler (Ventolin HFA) ascorbic acid (vitamin C) 500 mg 1 tab PO DAILY PRN ILLNESS 08/23/21 03/07/24 capsule cholecalciferol (vitamin D3) 125 1 tab ORAL DAILY 08/23/21 03/06/24 mcg (5,000 unit) capsule insulin NPH-regular 70-30 U-100 14 - 18 units subcut BID 08/23/21 03/07/24 insulin 100 unit/mL subcutaneous pen (Humulin 70/30 U-100 KwikPen) lisinopril 20 mg tablet (Zestril) 40 mg ORAL DAILY 08/23/21 03/07/24 loratadine 10 mg tablet 10 mg PO DAILY PRN ALLERGIES 08/23/21 03/07/24 citalopram 20 mg tablet 20 mg PO DAILY 03/07/24 03/07/24 Allergies Allergies Allergy/AdvReac Type Severity Reaction Status Date / Time codeine AdvReac Nausea Verified 07/04/22 15:32 diltiazem AdvReac Unknown Verified 07/04/22 15:32 gabapentin AdvReac Cramps Verified 07/04/22 15:32 hydrocodone (From Vicodin) AdvReac Unknown Verified 08/08/22 17:22 [facility] Medical History Medical History (Updated 03/07/24 @ 17:21 by PHUONG Montez) Unspecified arthropathy, shoulder region Anemia Breast cancer, stage 0 Hypertension Diabetes Surgical History Surgical History (Updated 03/06/24 @ 16:48 by Cesilia Lepe, RN, BSN) Knee joint replacement status S/P tonsillectomy History of section Family History Family History (Updated 03/07/24 @ 14:10 by PHUONG Montez) Father Blood disease Daughter Cancer Social History Social History (Updated 03/06/24 @ 16:48 by Cesilia Lepe, RN, BSN) Smoking Status: Never smoker Second hand tobacco smoke exposure: Yes Do you dip or chew tobacco?: No Do you vape?: No Patient requests smoking cessation consult: No Initiate information on smoking cessation: No Living arrangement: At home Relationship: Level: Assisted Home Mobility Equipment: Walker Do you feel safe in your home environment?: No Suffered physical, verbal, emotional, or financial abuse?: No POLST Patient has POLST: No Medical History (Updated 03/07/24 @ 17:21 by PHUONG Montez) Unspecified arthropathy, 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, unspecified shoulder (ICD-10) Anemia D64.9 - Anemia, unspecified (ICD-10) Breast cancer, stage 0 D05.90 - Unspecified type of carcinoma in situ of unspecified breast (ICD- 10) Hypertension I10 - Essential (primary) hypertension (ICD-10) Diabetes E11.9 - Type 2 diabetes mellitus without complications (ICD-10) Surgical History (Updated 03/06/24 @ 16:48 by Cesilia Lepe, RN, BSN) Knee joint replacement status Z96.659 - Presence of unspecified artificial knee joint (ICD-10) S/P tonsillectomy Z90.89 - Acquired absence of other organs (ICD-10) History of section Z98.891 - History of uterine scar from previous surgery (ICD-10) Family History (Updated 03/07/24 @ 14:10 by PHUONG Montez) Father Blood disease Daughter Cancer epithelial sarcoma Social History (Updated 03/06/24 @ 16:48 by Cesilia Lepe, RN, BSN) Smoking Status: Never smoker Second hand tobacco smoke exposure: Yes Do you dip or chew tobacco?: No Do you vape?: No Patient requests smoking cessation consult: No Initiate information on smoking cessation: No Living arrangement: At home Relationship: Level: Assisted Home Mobility Equipment: Walker Do you feel safe in your home environment?: No Suffered physical, verbal, emotional, or financial abuse?: No Review of Systems Status of ROS: 10 or more systems reviewed and unremarkable except as noted in history and below Constitutional Reports: Fatigue and Malaise; Denies: Fever Eyes Denies: Blurry vision Ears, nose, mouth, and throat Reports: Dry mouth and Bad breath; Denies: Swelling of lips/tongue, Mouth lesions or Bleeding gums Cardiovascular Reports: palpitations Respiratory Reports: SOB with exertion Gastrointestinal Denies: Abdominal pain, Nausea, Vomiting, Diarrhea, Constipation, Melena or Blood in stool Genitourinary Reports: Urinary urgency Musculoskeletal Reports: Back pain Integumentary/Breast Denies: Rash Neurological Denies: Headache Endocrine Reports: Fatigue Hematologic/Lymphatic Reports: Easy bruising (several months) Exam Constitutional normal general appearance HENMT normocephalic Eyes PERRL and conjunctivae normal Neck/C-Spine visual inspection normal and trachea midline Lymph no lymphadenopathy noted Chest inspection of chest normal and palpation of chest normal Respiratory normal respiratory effort and clear to auscultation bilaterally Cardiovascular normal heart rate noted and regular rhythm noted Gastrointestinal abdomen normal to inspection, abdomen soft to palpation and nondistended Extremities normal to inspection right knee incision with dressing intact. there is no underlying eythema. expected amount of RLW edema 2 weeks s/p right total knee arthroplasty Neurology eeo officer II-XII intact Psychiatry mental status grossly normal, oriented x3, thought process normal and cooperative Skin skin color normal Conclusion/Plan Problem List (1) Anemia: Plan: She is symptomatic with her anemia. She came into the emergency department in the early evening on 03/06/2024. She was evaluated by the provider and noted to have a hemoglobin of 6.8. She was symptomatic with fatigue dyspnea on exertion and tachycardia. She was transfused 1 unit of packed red blood cells. She was reevaluated by the overnight provider. Her repeat hemoglobin was 8.2. She continued to feel poorly and not up to the task of discharging to home alone. She was then reevaluated by the oncoming daytime provider which was the same provider who had seen her the night before. At that time the assessment was that she felt too weak to go home. She had been further worked up for other cause of dyspnea to include CTA of the chest and DVT study of her operative lower extremity, this is her right lower extremity. On ambulation trial her heart rate increased by 40 points and she felt lightheaded. It was at this point that the ED provider discussed admission with hospitalist service and I have agreed to admit the patient. The reason I am admitting this patient is for symptomatic anemia. I will admit this patient for further transfusion of packed red blood cells for her symptomatic anemia. She is in the process of workup with hematology oncology and will likely have a bone marrow biopsy.This will be done as an outpatient. I believe the source of her anemia is not red blood cell loss but the inability to make red blood cells. Qualifiers: Anemia type: unspecified type Qualified Code(s): D64.9 - Anemia, unspecified (2) Ambulatory dysfunction: Plan: She is about 2 weeks status post total knee replacement on the right. She has been able to drive currently because of this. She is previously fully independent. She came in due to dyspnea on exertion and extreme fatigue. She has improved somewhat but remains orthostatic. I have ordered physical and Occupational Therapy evaluations. I am somewhat suspicious with this anemia and multiple medical problems that she will have difficulty meeting her self-care needs and will need rehabilitation facility placement. (3) Renal insufficiency: Plan: She has had some renal insufficiency as an outpatient. Her creatinine is within normal limits today although upper limit of normal. We will continue to follow. I will recheck basic metabolic panel in the AM. (4) Diabetes: Plan: Review of outpatient chart reveals that her hemoglobin A1c was 6.8 in January. About a month ago. Since that time she has undergone total knee replacement. She states that her sugars have been under good control at home. She checks her blood sugar once a day in the morning. Her diabetes therapy at home consists of Humulin 70/30 between 14 and 18 units subcu twice daily on a sliding scale. While she is here in the hospital I am placing her on sliding scale insulin. I will adjust insulin therapy per her blood sugar readings and will probably place her on basal insulin as needed. 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 Her blood pressure has been elevated this afternoon. I have ordered labetalol as needed systolic BP greater than 160. Will hold this for heart rate less than 65. She did take her lisinopril while she was sitting down to the emergency department about 4:00 this morning. (6) Myelodysplastic syndrome: Plan: The last note from hematology dated 02/14/2024 was reviewed. CTA chest abdomen pelvis was completed to look for any bony lesions. There were none found. Bone marrow biopsy is being considered for further evaluation of her anemia. She is due to see oncology, Dr. Damico on 03/12/2024. Plan Dr. Sierra was present with me at the bedside of this patient. We evaluated the patient together. Please see her attestation. Lab Results 03/07/24 02:46 03/06/24 18:03 Core Measures Anticipated LOS I expect patient to be DC'd or transferred within 96 hours.: Yes Issues Hospital Issues and Management Plan: Transfusion Monitoring of vital signs Physical and Occupational Therapy evaluation Discharge planning DVT/VTE - Prophylaxis VTE/DVT Device ordered at admit?: Yes VTE/DVT Prophylaxis med ordered at admit?: Yes
[2024-03-07] MEDS ORDERED: SODIUM CHLORIDE FLUSH 0.9% 10 ML SYRINGE IVP PRN (14:36)
[2024-03-07] MEDS ORDERED: ALBUTEROL NEB 2.5 MG/3 ML INH PRN (14:49)
[2024-03-07] MEDS: CITALOPRAM HYDROBROMIDE 20 MG TABLET PO SCH (15:22)
[2024-03-07] MEDS: SODIUM CHLORIDE 0.9% 1,000 ML IV SCH (15:25)
[2024-03-07] MEDS: lisinopriL 20 MG TABLET PO SCH (15:27)
[2024-03-07] MEDS ORDERED: LABETALOL 20 MG/4 ML SYRINGE IVP PRN ×2 (16:10→17:51)
[2024-03-07] MEDS: INSULIN LISPRO 300 UNIT/3 ML PEN SUBQ SCH ×2 (17:43→22:05)
[2024-03-07] MEDS: SODIUM CHLORIDE FLUSH 0.9% 10 ML SYRINGE IVP SCH (19:52)
[2024-03-07] MEDS: HEPARIN 5,000 UNIT/ML VIAL SUBQ SCH (22:07)
[2024-03-07] MEDS: ACETAMINOPHEN 325 MG TABLET PO PRN (22:18)
[2024-03-08 06:12] LABS: BASOPHILS % (AUTO) 0.5 %; EOSINOPHILS # (AUTO) 0.3 10^3/uL (0.0-0.7); EOSINOPHILS % (AUTO) 4.6 %; HCT - HEMATOCRIT 28.5 % (37.0-47.0); MEAN CORPUSCULAR HEMOGLOBIN 28.4 pg (27.0-31.0); MEAN CORPUSCULAR HGB CONC 31.6 g/dL (32.0-36.0); MEAN CORPUSCULAR VOLUME 89.9 fL (81.0-99.0); MEAN PLATELET VOLUME 8.6 fL (7.9-10.8); MONOCYTES # (AUTO) 0.5 10^3/uL (0.0-1.0); MONOCYTES % (AUTO) 9.3 %; NEUTROPHILS # (AUTO) 3.8 10^3/uL (1.5-6.6); NEUTROPHILS % (AUTO) 66.7 %; PLT - PLATELET COUNT 271 10^3/uL (130-450); RED BLOOD COUNT 3.17 10^6/uL (4.20-5.40); RED CELL DISTRIBUTION WIDTH 15.2 % (12.0-15.0); WHITE BLOOD COUNT 5.6 x10^3/uL (4.8-10.8)
[2024-03-08 06:23] LABS: CALCIUM 8.6 mg/dL (8.5-10.3); CREATININE 1.2 mg/dL (0.6-1.3); POTASSIUM 4.5 mmol/L (3.5-4.5)
[2024-03-08] MEDS: INSULIN LISPRO 300 UNIT/3 ML PEN SUBQ SCH (07:59)
[2024-03-08] MEDS: ASCORBIC ACID 500 MG TABLET PO SCH (08:11)
[2024-03-08] MEDS: CHOLECALCIFEROL 5,000 UNIT CAPSULE PO SCH (08:11)
[2024-03-08] MEDS: oxyCODONE 5 MG TABLET PO PRN (09:32)
[2024-03-08 10:11] LABS: ESTIMATED AVERAGE GLUCOSE 134 mg/dL (70-100); HEMOGLOBIN A1c% 6.3 % (4.27-6.07)
--- NOTE | 2024-03-08 12:13 | PROVIDER PROGRESS NOTE ---
Subjective Prog Note Date Prog Note Date: 03/08/24 Prog Note Time: 12:00 Subjective Pt reports feeling: Improved Subjective: She feels more like herself than she has in days. She has been up with PT, and SNF has been recommended. She is fine with this. she recognizes that she is not doing well at home alone. She is appreciative of the care she received by Dr Ivey in the ED. She is eager to get back to her life of traveling and visiting with her boyfriend, who was her boyfriend in high school. They have reconnected after many years. She has needed to use oxycodone for knee pain and is requesting stool softeners. She complains of urinary frequency which has been ongoing for weeks. She has had a negative urinalysis. Current Medications Current Medications Current Medications: Current Medications Generic Name Dose Route Start Last Admin Trade Name Freq PRN Reason Stop Dose Admin Acetaminophen 650 mg 03/07/24 14:36 03/07/24 22:18 Acetaminophen 325 Mg Tablet PO 650 mg Q4HR PRN Administration Pain 1 to 4, or Fever Albuterol 2.5 mg 03/07/24 14:49 Albuterol Neb 2.5 Mg/3 Ml INH RTQ4H PRN Wheezing Ascorbic Acid 500 mg 03/08/24 09:00 03/08/24 08:11 Ascorbic Acid 500 Mg Tablet PO 500 mg DAILY ANDERSON Administration Cholecalciferol 5,000 unit 03/08/24 09:00 03/08/24 08:11 Cholecalciferol 5,000 Unit Capsule PO 5,000 unit DAILY ANDERSON Administration Citalopram Hydrobromide 20 mg 03/07/24 14:36 03/08/24 08:11 Citalopram Hydrobromide 20 Mg Tablet PO 20 mg DAILY ANDERSON Administration Citalopram Hydrobromide 20 mg 03/08/24 13:00 Citalopram Hydrobromide 20 Mg Tablet PO DAILY ANDERSON Heparin Sodium (Porcine) 5,000 unit 03/07/24 21:00 03/08/24 08:11 Heparin 5,000 Unit/Ml Vial SUBQ 5,000 unit BID ANDERSON Administration Insulin Human Lispro 1 - 9 unit 03/08/24 08:00 03/08/24 11:59 Insulin Lispro 300 Unit/3 Ml Pen SUBQ 1 unit 0800,1200,1700,2100 ANDERSON Administration Protocol Labetalol HCl 20 mg 03/07/24 17:51 Labetalol 20 Mg/4 Ml Syringe IVP Q4H PRN Hypertensive Emergency Lisinopril 20 mg 03/07/24 14:36 03/08/24 08:11 Lisinopril 20 Mg Tablet PO 20 mg DAILY ANDERSON Administration Oxycodone HCl 5 mg 03/07/24 14:36 03/08/24 09:32 Oxycodone 5 Mg Tablet PO 5 mg Q4HR PRN Administration Pain 5 to 7 Sodium Chloride 10 ml 03/07/24 14:36 Sodium Chloride Flush 0.9% 10 Ml Syringe IVP PRN PRN NEEDED PER PROVIDER ORDERS Sodium Chloride 10 ml 03/07/24 17:00 03/08/24 08:14 Sodium Chloride Flush 0.9% 10 Ml Syringe IVP 10 ml 0100,0900,1700 ANDERSON Administration Objective Vital Signs/Intake & Output Vital Signs: Vital Signs x48h Temp Pulse Resp BP Pulse Ox O2 Flow Rate 03/08/24 09:23 77 165/68 H 03/08/24 07:59 36.7 C 79 18 180/76 H 95 03/08/24 04:52 36.5 C 69 20 165/65 H 95 1 Intake & Output: Intake & Output 03/06/24 03/07/24 03/08/24 03/09/24 05:59 05:59 05:59 05:59 Intake Total 300 / 300 1860 / 1860 500 / 500 Output Total 500 / 500 600 / 600 Balance 300 / 300 1360 / 1360 -100 / -100 Weight (kg) 91.626 kg 95 kg Objective General Appearance: positive No acute distress and Alert Eyes Bilateral: positive Normal inspection and Conjunctivae nml (there is very mild scleral icterus) ENT: positive ENT inspection nml Neck: positive Nml inspection Respiratory: positive No respiratory distress and Breath sounds nml Cardiovascular: positive Regular rate & rhythm Abdomen: positive No distention Back: positive Nml inspection Skin: positive Color nml Extremities: positive Joint swelling (right knee, appropriate) Neurologic/Psychiatric: positive Oriented x3 Lab Results 03/08/24 05:50 03/08/24 05:50 Other Labs: Lab Results x24hrs 03/08/24 03/08/24 03/08/24 Range/Units 11:47 07:46 05:50 WBC 5.6 (4.8-10.8) x10^3/uL RBC 3.17 L (4.20-5.40) 10^6/uL Hgb 9.0 L (12.0-16.0) g/dL Hct 28.5 L (37.0-47.0) % MCV 89.9 (81.0-99.0) fL MCH 28.4 (27.0-31.0) pg MCHC 31.6 L (32.0-36.0) g/dL RDW 15.2 H (12.0-15.0) % Plt Count 271 (130-450) 10^3/uL MPV 8.6 (7.9-10.8) fL Neut # (Auto) 3.8 (1.5-6.6) 10^3/uL Lymph # (Auto) 1.0 L (1.5-3.5) 10^3/uL Avery # (Auto) 0.5 (0.0-1.0) 10^3/uL Eos # (Auto) 0.3 (0.0-0.7) 10^3/uL Baso # (Auto) 0.0 (0.0-0.1) 10^3/uL Absolute Nucleated RBC 0.00 x10^3/uL Nucleated RBC % 0.0 /100WBC Sodium 136 (135-145) mmol/L Potassium 4.5 (3.5-4.5) mmol/L Chloride 104 (101-111) mmol/L Carbon Dioxide 28 (21-32) mmol/L Anion Gap 4.0 L (6-13) BUN 21 H (6-20) mg/dL Creatinine 1.2 (0.6-1.3) mg/dL Estimated GFR (MDRD) 44 L (>89) Glucose 150 H (74-104) mg/dL POC Whole Bld Glucose 164 144 (70-100) mg/dL Estimat Average Glucose 134 H (70-100) mg/dL Hemoglobin A1c % 6.3 H (4.27-6.07) % Calcium 8.6 (8.5-10.3) mg/dL Blood Type Antibody Screen Crossmatch IS Only 03/07/24 03/07/24 03/07/24 Range/Units 21:40 20:39 16:41 WBC (4.8-10.8) x10^3/uL RBC (4.20-5.40) 10^6/uL Hgb (12.0-16.0) g/dL Hct (37.0-47.0) % MCV (81.0-99.0) fL MCH (27.0-31.0) pg MCHC (32.0-36.0) g/dL RDW (12.0-15.0) % Plt Count (130-450) 10^3/uL MPV (7.9-10.8) fL Neut # (Auto) (1.5-6.6) 10^3/uL Lymph # (Auto) (1.5-3.5) 10^3/uL Avery # (Auto) (0.0-1.0) 10^3/uL Eos # (Auto) (0.0-0.7) 10^3/uL Baso # (Auto) (0.0-0.1) 10^3/uL Absolute Nucleated RBC x10^3/uL Nucleated RBC % /100WBC Sodium (135-145) mmol/L Potassium (3.5-4.5) mmol/L Chloride (101-111) mmol/L Carbon Dioxide (21-32) mmol/L Anion Gap (6-13) BUN (6-20) mg/dL Creatinine (0.6-1.3) mg/dL Estimated GFR (MDRD) (>89) Glucose (74-104) mg/dL POC Whole Bld Glucose 238 246 224 (70-100) mg/dL Estimat Average Glucose (70-100) mg/dL Hemoglobin A1c % (4.27-6.07) % Calcium (8.5-10.3) mg/dL Blood Type Antibody Screen Crossmatch IS Only 03/06/24 Range/Units 19:23 WBC (4.8-10.8) x10^3/uL RBC (4.20-5.40) 10^6/uL Hgb (12.0-16.0) g/dL Hct (37.0-47.0) % MCV (81.0-99.0) fL MCH (27.0-31.0) pg MCHC (32.0-36.0) g/dL RDW (12.0-15.0) % Plt Count (130-450) 10^3/uL MPV (7.9-10.8) fL Neut # (Auto) (1.5-6.6) 10^3/uL Lymph # (Auto) (1.5-3.5) 10^3/uL Avery # (Auto) (0.0-1.0) 10^3/uL Eos # (Auto) (0.0-0.7) 10^3/uL Baso # (Auto) (0.0-0.1) 10^3/uL Absolute Nucleated RBC x10^3/uL Nucleated RBC % /100WBC Sodium (135-145) mmol/L Potassium (3.5-4.5) mmol/L Chloride (101-111) mmol/L Carbon Dioxide (21-32) mmol/L Anion Gap (6-13) BUN (6-20) mg/dL Creatinine (0.6-1.3) mg/dL Estimated GFR (MDRD) (>89) Glucose (74-104) mg/dL POC Whole Bld Glucose (70-100) mg/dL Estimat Average Glucose (70-100) mg/dL Hemoglobin A1c % (4.27-6.07) % Calcium (8.5-10.3) mg/dL Blood Type A POSITIVE Antibody Screen NEGATIVE Crossmatch IS Only See Detail Assessment/Plan Problem List (1) Anemia: Impression: She was symptomatic with a hemoglobin of 8.2. she was admitted due to symptomatic anemia. I have treated her symptomatic anemia. She had been further worked up for other cause of dyspnea to include CTA of the chest and DVT study of her operative lower extremity, this is her right lower extremity. On ambulation trial in the ED her heart rate increased by 40 points and she felt lightheaded. It was at this point that the ED provider discussed admission with hospitalist service. I have given the patient one unit of pRBCs, she got an additional unit in the ED. She is in the process of workup with hematology oncology and will likely have a bone marrow biopsy. This will be done as an outpatient. I believe the source of her anemia is not red blood cell loss but the inability to make red blood cells. Qualifiers: Anemia type: unspecified type Qualified Code(s): D64.9 - Anemia, unspecified (2) Ambulatory dysfunction: Impression: Evaluated today by PT and OT, and recommendation is for SNF. She is about 2 weeks s/p right total knee arthroplasty, and is living alone, with lots of support from loved ones. She is amenable to SNF placement. She is using oxycodone intermittently for pain. (3) Orthostatic hypotension: Impression: This is persistent despite a hemoglobin of 9. Today her orthostatic hypotension is asymptomatic. She has a supine BP of 168/73, to standing 118/90, change of 73 points. Heart rate 75 supine to 88 standing. Today she is asymptomatic with this, and therefore I believe that she can discharge to SNF. (4) Renal insufficiency: Impression: Laboratory Tests 02/07/24 02/23/24 03/06/24 11:02 10:10 18:03 Creatinine 1.3 1.5 H 1.3 Estimated GFR (MDRD) 40 L 34 L 40 L 03/08/24 05:50 Creatinine 1.2 Estimated GFR (MDRD) 44 L I am avoiding nephrotoxic medications in this patient, but otherwise this is not currently of concern. She did not have any rise in her Cr in response to the contrast given for the CTA chest on the date of admit. (5) Diabetes: Impression: Review of outpatient chart reveals that her hemoglobin A1c was 6.8 in January. Today it is 6.3. . Selected Entries 03/07/24 21:00 03/07/24 22:05 03/08/24 07:58 Result (mg/dL) 246 238 144 03/08/24 07:59 03/08/24 11:55 Result (mg/dL) 144 164 She has needed minimal insulin since arriving here on the med surg unit. . She is intolerant of metformin. She states that she was having some low blood sugars at night at home. She wants to see a DM educator as an outpatient. We will need to modify her outpatient regimen. I will start her on lantus 10u tonight, and we will continue to monitor blood sugars . Qualifiers: Diabetes mellitus complication status: with hyperglycemia Diabetes mellitus retirement insulin use: with retirement use Diabetes mellitus type: type 2 Qualified Code(s): E11.65 - Type 2 diabetes mellitus with hyperglycemia; Z79.4 - [facility]DC (current) use of insulin (6) Hypertension: Impression: I have ordered labetaolol as needed in addition to her home lisinopril. She has not needed the labetalol for her hypertension, I am going to therefore discontinue this as it could contribute to orthostasis (7) Myelodysplastic syndrome: Impression: She has chronic anemia, as evidenced by this hospitalization and need for transfusion. she is currently being worked up by heme/onc. She has not yet had a bone marrow biopsy. She had CT CAP looking for lesions. I have reviewed the report of this study, as well as that of the CTA chest that was done on the day of admit. There is not LAD. there is not osseus abnormality. Of note, no contrast was given on the date of the CT CAP due to her renal status.
[2024-03-08] MEDS: CITALOPRAM HYDROBROMIDE 20 MG TABLET PO SCH (13:06)
[2024-03-08] MEDS: DOCUSATE SODIUM 250 MG CAPSULE PO SCH (14:47)
[2024-03-08] MEDS: INSULIN GLARGINE-YFGN 300 UNIT/3 ML PEN SUBQ SCH (21:08)
[2024-03-09 06:44] LABS: BASOPHILS % (AUTO) 0.5 %; EOSINOPHILS # (AUTO) 0.3 10^3/uL (0.0-0.7); EOSINOPHILS % (AUTO) 5.7 %; HCT - HEMATOCRIT 28.7 % (37.0-47.0); HGB - HEMOGLOBIN 9.1 g/dL (12.0-16.0); LYMPHOCYTES % (AUTO) 17.4 %; MEAN CORPUSCULAR HEMOGLOBIN 28.4 pg (27.0-31.0); MEAN CORPUSCULAR HGB CONC 31.7 g/dL (32.0-36.0); MEAN CORPUSCULAR VOLUME 89.7 fL (81.0-99.0); MEAN PLATELET VOLUME 8.7 fL (7.9-10.8); MONOCYTES # (AUTO) 0.6 10^3/uL (0.0-1.0); MONOCYTES % (AUTO) 9.7 %; NEUTROPHILS # (AUTO) 3.8 10^3/uL (1.5-6.6); NEUTROPHILS % (AUTO) 65.5 %; PLT - PLATELET COUNT 319 10^3/uL (130-450); RED CELL DISTRIBUTION WIDTH 14.9 % (12.0-15.0); WHITE BLOOD COUNT 5.8 x10^3/uL (4.8-10.8)
[2024-03-09 07:00] LABS: ALBUMIN 3.2 g/dL (3.2-5.5); ALBUMIN/GLOBULIN RATIO 1.1 (1.0-2.2); BILIRUBIN,TOTAL 0.6 mg/dL (0.2-1.0); CALCIUM 8.8 mg/dL (8.5-10.3); CREATININE 1.4 mg/dL (0.6-1.3); POTASSIUM 4.4 mmol/L (3.5-4.5); TOTAL PROTEIN 6.1 g/dL (6.4-8.9)
--- NOTE | 2024-03-09 09:07 | PROVIDER PROGRESS NOTE ---
Current Medications Current Medications Current Medications: Current Medications Generic Name Dose Route Start Last Admin Trade Name Freq PRN Reason Stop Dose Admin Acetaminophen 650 mg 03/07/24 14:36 03/09/24 04:58 Acetaminophen 325 Mg Tablet PO 650 mg Q4HR PRN Administration Pain 1 to 4, or Fever Albuterol 2.5 mg 03/07/24 14:49 Albuterol Neb 2.5 Mg/3 Ml INH RTQ4H PRN Wheezing Ascorbic Acid 500 mg 03/08/24 09:00 03/08/24 08:11 Ascorbic Acid 500 Mg Tablet PO 500 mg DAILY ANDERSON Administration Cholecalciferol 5,000 unit 03/08/24 09:00 03/08/24 08:11 Cholecalciferol 5,000 Unit Capsule PO 5,000 unit DAILY ANDERSON Administration Citalopram Hydrobromide 20 mg 03/08/24 13:00 03/08/24 13:06 Citalopram Hydrobromide 20 Mg Tablet PO Not Given DAILY ANDERSON Docusate Sodium 250 mg 03/08/24 14:24 03/08/24 14:47 Docusate Sodium 250 Mg Capsule PO 250 mg DAILY ANDERSON Administration Heparin Sodium (Porcine) 5,000 unit 03/07/24 21:00 03/08/24 21:10 Heparin 5,000 Unit/Ml Vial SUBQ 5,000 unit BID ANDERSON Administration Insulin Glargine-yfgn 10 unit 03/08/24 21:00 03/08/24 21:08 Insulin Glargine-Yfgn 300 Unit/3 Ml Pen SUBQ 10 unit QPM ANDERSON Administration Insulin Human Lispro 1 - 9 unit 03/08/24 08:00 03/09/24 07:52 Insulin Lispro 300 Unit/3 Ml Pen SUBQ 1 unit 0800,1200,1700,2100 ANDERSON Administration Protocol Lisinopril 20 mg 03/07/24 14:36 03/08/24 08:11 Lisinopril 20 Mg Tablet PO 20 mg DAILY ANDERSON Administration Oxycodone HCl 5 mg 03/07/24 14:36 03/08/24 21:05 Oxycodone 5 Mg Tablet PO 5 mg Q4HR PRN Administration Pain 5 to 7 Sodium Chloride 10 ml 03/07/24 14:36 Sodium Chloride Flush 0.9% 10 Ml Syringe IVP PRN PRN NEEDED PER PROVIDER ORDERS Sodium Chloride 10 ml 03/07/24 17:00 03/09/24 01:51 Sodium Chloride Flush 0.9% 10 Ml Syringe IVP 10 ml 0100,0900,1700 ANDERSON Administration Objective Vital Signs/Intake & Output Vital Signs: Vital Signs x48h Temp Pulse Resp BP Pulse Ox 03/09/24 05:00 36.9 C 74 14 170/77 H 94 Intake & Output: Intake & Output 03/07/24 03/08/24 03/09/24 03/10/24 05:59 05:59 05:59 05:59 Intake Total 300 / 300 1860 / 1860 1280 / 1280 675 / 675 Output Total 500 / 500 1200 / 1200 650 / 650 Balance 300 / 300 1360 / 1360 80 / 80 25 / 25 Weight (kg) 91.626 kg 95 kg Objective General Appearance: positive No acute distress and Alert Eyes Bilateral: positive Normal inspection and Conjunctivae nml (there is very mild scleral icterus) ENT: positive ENT inspection nml Neck: positive Nml inspection Respiratory: positive No respiratory distress and Breath sounds nml Cardiovascular: positive Regular rate & rhythm Abdomen: positive No distention Back: positive Nml inspection Skin: positive Color nml Extremities: positive Joint swelling (right knee, appropriate) Neurologic/Psychiatric: positive Oriented x3 Lab Results 03/09/24 06:03 03/09/24 06:03 Other Labs: Lab Results x24hrs 03/09/24 03/09/24 03/09/24 Range/Units 07:36 06:03 05:04 WBC 5.8 (4.8-10.8) x10^3/uL RBC 3.20 L (4.20-5.40) 10^6/uL Hgb 9.1 L (12.0-16.0) g/dL Hct 28.7 L (37.0-47.0) % MCV 89.7 (81.0-99.0) fL MCH 28.4 (27.0-31.0) pg MCHC 31.7 L (32.0-36.0) g/dL RDW 14.9 (12.0-15.0) % Plt Count 319 (130-450) 10^3/uL MPV 8.7 (7.9-10.8) fL Neut # (Auto) 3.8 (1.5-6.6) 10^3/uL Lymph # (Auto) 1.0 L (1.5-3.5) 10^3/uL [place] # (Auto) 0.6 (0.0-1.0) 10^3/uL Eos # (Auto) 0.3 (0.0-0.7) 10^3/uL Baso # (Auto) 0.0 (0.0-0.1) 10^3/uL Absolute Nucleated RBC 0.00 x10^3/uL Nucleated RBC % 0.0 /100WBC Sodium 136 (135-145) mmol/L Potassium 4.4 (3.5-4.5) mmol/L Chloride 101 (101-111) mmol/L Carbon Dioxide 28 (21-32) mmol/L Anion Gap 7.0 (6-13) BUN 24 H (6-20) mg/dL Creatinine 1.4 H (0.6-1.3) mg/dL Estimated GFR (MDRD) 37 L (>89) Glucose 167 H (74-104) mg/dL POC Whole Bld Glucose 159 161 (70-100) mg/dL Estimat Average Glucose (70-100) mg/dL Hemoglobin A1c % (4.27-6.07) % Calcium 8.8 (8.5-10.3) mg/dL Total Bilirubin 0.6 (0.2-1.0) mg/dL AST 10 (10-42) IU/L ALT 11 (10-60) IU/L Alkaline Phosphatase 49 (42-121) IU/L Total Protein 6.1 L (6.4-8.9) g/dL Albumin 3.2 (3.2-5.5) g/dL Globulin 2.9 (2.1-4.2) g/dL Albumin/Globulin Ratio 1.1 (1.0-2.2) 03/08/24 03/08/24 03/08/24 Range/Units 20:49 16:38 11:47 WBC (4.8-10.8) x10^3/uL RBC (4.20-5.40) 10^6/uL Hgb (12.0-16.0) g/dL Hct (37.0-47.0) % MCV (81.0-99.0) fL MCH (27.0-31.0) pg MCHC (32.0-36.0) g/dL RDW (12.0-15.0) % Plt Count (130-450) 10^3/uL MPV (7.9-10.8) fL Neut # (Auto) (1.5-6.6) 10^3/uL Lymph # (Auto) (1.5-3.5) 10^3/uL [place] # (Auto) (0.0-1.0) 10^3/uL Eos # (Auto) (0.0-0.7) 10^3/uL Baso # (Auto) (0.0-0.1) 10^3/uL Absolute Nucleated RBC x10^3/uL Nucleated RBC % /100WBC Sodium (135-145) mmol/L Potassium (3.5-4.5) mmol/L Chloride (101-111) mmol/L Carbon Dioxide (21-32) mmol/L Anion Gap (6-13) BUN (6-20) mg/dL Creatinine (0.6-1.3) mg/dL Estimated GFR (MDRD) (>89) Glucose (74-104) mg/dL POC Whole Bld Glucose 152 267 164 (70-100) mg/dL Estimat Average Glucose (70-100) mg/dL Hemoglobin A1c % (4.27-6.07) % Calcium (8.5-10.3) mg/dL Total Bilirubin (0.2-1.0) mg/dL AST (10-42) IU/L ALT (10-60) IU/L Alkaline Phosphatase (42-121) IU/L Total Protein (6.4-8.9) g/dL Albumin (3.2-5.5) g/dL Globulin (2.1-4.2) g/dL Albumin/Globulin Ratio (1.0-2.2) 03/08/24 Range/Units 05:50 WBC (4.8-10.8) x10^3/uL RBC (4.20-5.40) 10^6/uL Hgb (12.0-16.0) g/dL Hct (37.0-47.0) % MCV (81.0-99.0) fL MCH (27.0-31.0) pg MCHC (32.0-36.0) g/dL RDW (12.0-15.0) % Plt Count (130-450) 10^3/uL MPV (7.9-10.8) fL Neut # (Auto) (1.5-6.6) 10^3/uL Lymph # (Auto) (1.5-3.5) 10^3/uL [place] # (Auto) (0.0-1.0) 10^3/uL Eos # (Auto) (0.0-0.7) 10^3/uL Baso # (Auto) (0.0-0.1) 10^3/uL Absolute Nucleated RBC x10^3/uL Nucleated RBC % /100WBC Sodium (135-145) mmol/L Potassium (3.5-4.5) mmol/L Chloride (101-111) mmol/L Carbon Dioxide (21-32) mmol/L Anion Gap (6-13) BUN (6-20) mg/dL Creatinine (0.6-1.3) mg/dL Estimated GFR (MDRD) (>89) Glucose (74-104) mg/dL POC Whole Bld Glucose (70-100) mg/dL Estimat Average Glucose 134 H (70-100) mg/dL Hemoglobin A1c % 6.3 H (4.27-6.07) % Calcium (8.5-10.3) mg/dL Total Bilirubin (0.2-1.0) mg/dL AST (10-42) IU/L ALT (10-60) IU/L Alkaline Phosphatase (42-121) IU/L Total Protein (6.4-8.9) g/dL Albumin (3.2-5.5) g/dL Globulin (2.1-4.2) g/dL Albumin/Globulin Ratio (1.0-2.2) Assessment/Plan Problem List (1) Anemia: Impression: She was symptomatic with a hemoglobin of 8.2. she was admitted due to symptomatic anemia. I have treated her symptomatic anemia. She had been further worked up for other cause of dyspnea to include CTA of the chest and DVT study of her operative lower extremity, this is her right lower extremity. On ambulation trial in the ED her heart rate increased by 40 points and she felt lightheaded. It was at this point that the ED provider discussed admission with hospitalist service. I have given the patient one unit of pRBCs, she got an additional unit in the ED. She has since had positive orthostatics but these have been asymptomatic. Laboratory Tests 03/06/24 03/07/24 03/08/24 18:03 02:46 05:50 Hgb 6.8 L* 8.2 L 9.0 L 03/09/24 06:03 Hgb 9.1 L She is in the process of workup with hematology oncology and will likely have a bone marrow biopsy. This will be done as an outpatient. I believe the source of her anemia is not red blood cell loss but the inability to make red blood cells. Qualifiers: Anemia type: unspecified type Qualified Code(s): D64.9 - Anemia, unspecified (2) Ambulatory dysfunction: Impression: Evaluated by PT and OT, and recommendation is for SNF. She is about 2 weeks s/p right total knee arthroplasty, and is living alone, with lots of support from loved ones. She is amenable to SNF placement. She is using oxycodone intermittently for pain. She has mary beth remaining in her knee incision. As for her disposition she has been accepted at [facility], however we are awaiting insurance authorization. She is medically clear for discharge today, I believe that the workup for her polyuria could be continued as an outpatient. And does not require hospitalization. (3) Orthostatic hypotension: Impression: This is persistent despite a hemoglobin of 9. Today her orthostatic hypotension is asymptomatic. She has a supine BP of 168/73, to standing 118/90, change of 73 points. Heart rate 75 supine to 88 standing. Today she is asymptomatic with this, and therefore I believe that she can discharge to SNF. (4) Polyuria: Impression: She has been complaining of polyuria for quite some time now. She has had a negative UA on admission. She has been using the pure wick quite frequently. We will repeat the UA today. I am also wondering about SIADH. To that end we will do workup for abnormal hormones to include FSH, LH, prolactin, urine and serum osmolality. (5) Renal insufficiency: Impression: Laboratory Tests 02/07/24 02/23/24 03/06/24 11:02 10:10 18:03 Creatinine 1.3 1.5 H 1.3 Estimated GFR (MDRD) 40 L 34 L 40 L 03/08/24 05:50 Creatinine 1.2 Estimated GFR (MDRD) 44 L I am avoiding nephrotoxic medications in this patient, but otherwise this is not currently of concern. She did not have any rise in her Cr in response to the contrast given for the CTA chest on the date of admit. (6) Diabetes: Impression: Review of outpatient chart reveals that her hemoglobin A1c was 6.8 in January. Today it is 6.3. . Selected Entries 03/07/24 21:00 03/07/24 22:05 03/08/24 07:58 Result (mg/dL) 246 238 144 03/08/24 07:59 03/08/24 11:55 Result (mg/dL) 144 164 She has needed minimal insulin since arriving here on the med surg unit. . She is intolerant of metformin. She states that she was having some low blood sugars at night at home. She wants to see a DM educator as an outpatient. We will need to modify her outpatient regimen. I will start her on lantus 10u tonight, and we will continue to monitor blood sugars . Qualifiers: Diabetes mellitus complication status: with hyperglycemia Diabetes mellitus dedicated intermodal truck driver insulin use: with dedicated intermodal truck driver use Diabetes mellitus type: type 2 Qualified Code(s): E11.65 - Type 2 diabetes mellitus with hyperglycemia; Z79.4 - intermediate card tender (current) use of insulin (7) Hypertension: Impression: I have ordered labetaolol as needed in addition to her home lisinopril. She has not needed the labetalol for her hypertension, I am going to therefore discontinue this as it could contribute to orthostasis (8) Myelodysplastic syndrome: Impression: She has chronic anemia, as evidenced by this hospitalization and need for transfusion. she is currently being worked up by heme/onc. She has not yet had a bone marrow biopsy. She had CT CAP looking for lesions. I have reviewed the report of this study, as well as that of the CTA chest that was done on the day of admit. There is not LAD. there is not osseus abnormality. Of note, no contrast was given on the date of the CT CAP due to her renal status.
[2024-03-09 09:08] VITALS: O2SAT 92
--- NOTE | 2024-03-09 09:12 | XRAY Report ---
PROCEDURE: XR Chest 1V INDICATIONS: Short of breath, desat on exercise TECHNIQUE: One view of the chest was acquired. COMPARISON: Correlation is made with chest CT examinations, 02/23/2024 and 03/06/2024 FINDINGS: Surgical changes and devices: None. Lungs and pleura: No pneumothorax. The small pleural effusions seen on the recent prior chest CT are not seen on this single view portable chest. Minimal interstitial prominence can be seen. No focal i nfiltrates are seen. Mediastinum: Mediastinal contours appear normal. Heart size is at the upper limits of normal. Bones and chest wall: No suspicious bony lesions. Age-appropriate degenerative changes are seen. Overlying soft tissues appear unremarkable. IMPRESSION: Minimal interstitial prominence can be seen, which may represent a small amount of fluid overload. The heart size is at the upper limits of normal. Reviewed by: Berry Wade MD on 03/09/2024 8:10 AM HAL Approved by: Berry Wade MD on 03/09/2024 8:10 AM HAL Station ID: [id number]
[2024-03-09 10:58] LABS: BILIRUBIN,URINE NEGATIVE (NEGATIVE); GLUCOSE, URINE (UA) NEGATIVE (NEGATIVE); KETONES,URINE (UA) NEGATIVE (NEGATIVE); LEUKOCYTE ESTERASE, URINE SMALL (NEGATIVE); NITRITE,URINE NEGATIVE (NEGATIVE); OCCULT BLOOD,URINE TRACE-INTA (NEGATIVE); PROTEIN,URINE NEGATIVE (NEGATIVE); UROBILINOGEN,URINE 0.2 (NORMAL) E.U./dL (NORMAL)
[2024-03-09 11:09] LABS: BACTERIA,URINE Rare /HPF (None Seen); CLARITY,URINE SL. CLOUDY (CLEAR); RBC,URINE 0-5 /HPF (0-5); SQUAMOUS EPITHELIAL CELL,UR MANY Squamous (<= Few); WBC,URINE >25 /HPF (0-5)
[2024-03-09] MEDS: guaiFENesin 600 MG TABLET PO SCH (11:10)
--- NOTE | 2024-03-09 12:37 | Discharge Summary ---
Discharge Summary Admit Date: 03/07/24 Discharge Date: 03/09/24 Discharging Provider: Anabel Meza PA-C Primary Care Provider: Analilia Busby Code Status: Do Not Attempt Resuscitation Discharge Facility Name: [facility] DIAGNOSES Admission Diagnoses: Anemia Ambulatory dysfunction Diabetes mellitus Renal insufficiency Hypertension Discharge Diagnoses with Status of Each Condition: (1) Anemia: Impression: She was symptomatic with a hemoglobin of 8.2. she was admitted due to symptomatic anemia. I have treated her symptomatic anemia. She had been further worked up for other cause of dyspnea to include CTA of the chest and DVT study of her operative lower extremity, this is her right lower extremity. On ambulation trial in the ED her heart rate increased by 40 points and she felt lightheaded. It was at this point that the ED provider discussed admission with hospitalist service. I have given the patient one unit of pRBCs, she got an additional unit in the ED. She has since had positive orthostatics but these have been asymptomatic. She is in the process of workup with hematology oncology and will likely have a bone marrow biopsy. This will be done as an outpatient. I believe the source of her anemia is not red blood cell loss but the inability to make red blood cells 03/06/24 03/07/24 03/08/24 18:03 02:46 05:50 Hgb 6.8 L* 8.2 L 9.0 L 03/09/24 06:03 Hgb 9.1 L (2) Ambulatory dysfunction: Evaluated by PT and OT, and recommendation is for SNF. She is about 2 weeks s/p right total knee arthroplasty, and is living alone, with lots of support from loved ones. She is amenable to SNF placement. She is using oxycodone intermittently for pain. She has mary beth remaining in her knee incision. As for her disposition she has been accepted at [facility], She is medically clear for discharge today, I believe that the workup for her polyuria could be continued as an outpatient. And does not require hospitalization. (3) Orthostatic hypotension: This is persistent despite a hemoglobin of 9. Today her orthostatic hypotension is asymptomatic. She has a supine BP of 168/73, to standing 118/90, change of 73 points. Heart rate 75 supine to 88 standing. Today she is asymptomatic with this, and therefore I believe that she can discharge to SNF. (4) Polyuria: She has been complaining of polyuria for quite some time now. She has had a negative UA on admission. UA was repeated prior to discharge and is negative, but contaminated. She has been using the pure wick quite frequently. I am also wondering about SIADH. To that end we will do workup for abnormal hormones to include FSH, prolactin, cortisol, urine and serum osmolality. 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 These results should be followed as an outpatient. (5) Renal insuffiency I am avoiding nephrotoxic medications in this patient, but otherwise this is not currently of concern. She did not have any rise in her Cr in response to the contrast given for the CTA chest on the date of admit. Laboratory Tests 03/06/24 03/08/24 03/09/24 18:03 05:50 06:03 Creatinine 1.3 1.2 1.4 H (6) Diabetes: Review of outpatient chart reveals that her hemoglobin A1c was 6.8 in January. Currently 6.3% She was On Humulin 70/30 at home on a sliding scale between 14 and 18 units but sometimes taking less than that she states. I have switched her over to Lantus at at bedtime. I would recommend checking blood sugars before meals and at bedtime and adjusting from there. 7) Hypertension: Resume home lisinopril. Monitor blood pressures for hypotension (8) Myelodysplastic syndrome: She has chronic anemia, as evidenced by this hospitalization and need for transfusion. she is currently being worked up by heme/onc. She has not yet had a bone marrow biopsy. She had CT CAP looking for lesions. I have reviewed the report of this study, as well as that of the CTA chest that was done on the day of admit. There is not LAD. there is not osseus abnormality. Of note, no contrast was given on the date of the CT CAP due to her renal status. HPI History of Present Illness: 73-year-old female who presented to the emergency department yesterday evening with complaints of feeling poorly. She had a knee replacement, a right total knee replacement about 2 weeks ago. She feels like she did well for the initial week but then started to feel like she was not continuing to improve. 2 days ago she went to physical therapy and started to have increased knee pain. When she came back into the house after physical therapy she stated that she took her heart rate and it was in the 140s. She said she laid down and rested and things gradually improved but overall her trajectory was not one of the improvement and therefore she did present to the emergency department yesterday. Since she has been in the emergency department she has received 1 unit of blood. Despite receiving 1 unit of blood she continues to feel too weak to go home. Her repeat hemoglobin was 8.2, however she remains orthostatic with an increase of 40 points that her heart rate with lightheaded symptomatology upon standing. She has a history of myelodysplastic syndrome. She is actively followed by oncology here at [facility]. She is currently considering bone marrow biopsy. She is currently scheduled for CT chest abdomen pelvis to evaluate for bony lesions or plasmacytomas. Since she has been in the emergency department she has had serial troponins. She has had a negative DVT study of her right lower extremity which is the operative leg. She has also had a negative CT pulmonary angiogram. It is due to her symptomatic anemia that she has been admitted for observation. She lives alone. She has a close friend Hortencia who helps her when she needs help at home. She lost her middle-age daughter to epithelial sarcoma about 6 months ago. She was down in [place] with her daughter when she . She continues to be very emotional regarding this situation. She has a significant other who lives in [place] who came up to help her for about a week after her knee replacement. She has 2 other daughters who live in [place]. As she has been recovering from her right knee replacement she is dependent on [employer] for her transportation but does get to outpatient PT using [employer]. She likes to cook and do crafts. She is also interested in genealogy Her previous PCP is Dr. Busby. Dr. Busby has retired but she is planning on staying with the practice and seeing someone there.Although she would be an trusted in switching to an internal medicine MD if 1 were available. CONSULTS | PROCEDURES Consultations: none Procedures: Venous duplex right lower extremity: Negative CTA of the chest: Small trace right and left pleural effusions. Subtle groundglass opacities in the lungs. Consider future imaging to assess for resolution. No acute pulmonary embolism If there is high concern for malignancy, consider dedicated oncologic imaging with IV and oral contrast Chest x-ray Minimal interstitial prominence heart size at the upper limits of normal HOSPITAL COURSE Hospital Course: Admitted from the ED after hemoglobin that was low, transfused in the ED but continued to be symptomatic therefore admitted for a second unit and further workup. She had some improvement but continued to be below baseline level of function was determined to need shelter for rehab. She was transferred to shelter for rehab with the eventual plan to discharge to home and independent living once again. Please see discharge diagnoses and status is of each condition for further details. ALLERGIES Allergies Allergy/AdvReac Type Severity Reaction Status Date / Time codeine AdvReac Nausea Verified 07/04/22 15:32 diltiazem AdvReac Unknown Verified 07/04/22 15:32 gabapentin AdvReac Cramps Verified 07/04/22 15:32 hydrocodone (From Vicodin) AdvReac Unknown Verified 08/08/22 17:22 MEDICATIONS Ambulatory Orders Medication Instructions Recorded Confirmed albuterol sulfate 90 mcg/actuation 2 inh inhalation PRN PRN Asthma 08/23/21 03/06/24 aerosol inhaler (Ventolin HFA) ascorbic acid (vitamin C) 500 mg 1 tab PO DAILY PRN ILLNESS 08/23/21 03/07/24 capsule cholecalciferol (vitamin D3) 125 1 tab ORAL DAILY 08/23/21 03/06/24 mcg (5,000 unit) capsule insulin NPH-regular 70-30 U-100 14 - 18 units subcut BID 08/23/21 03/07/24 insulin 100 unit/mL subcutaneous pen (Humulin 70/30 U-100 KwikPen) lisinopril 20 mg tablet (Zestril) 40 mg ORAL DAILY 08/23/21 03/07/24 loratadine 10 mg tablet 10 mg PO DAILY PRN ALLERGIES 08/23/21 03/07/24 citalopram 20 mg tablet 20 mg PO DAILY 03/07/24 03/07/24 acetaminophen 325 mg tablet 650 mg (2 x 325 mg) PO Q4HR PRN 03/09/24 Pain 1 to 4, or Fever #30 tabs ascorbic acid (vitamin C) 500 mg 500 mg PO DAILY #30 tabs 03/09/24 tablet (Vitamin C) cholecalciferol (vitamin D3) 125 5,000 unit PO DAILY #30 caps 03/09/24 mcg (5,000 unit) capsule citalopram 20 mg tablet 20 mg PO DAILY #30 tabs 03/09/24 docusate sodium 250 mg capsule 250 mg PO DAILY #30 caps 03/09/24 guaifenesin 600 mg tablet, 600 mg PO BID #60 tabs 03/09/24 extended release 12 hr (Mucinex) insulin glargine-yfgn 100 unit/mL 10 unit (0.1 mL) subcut QPM #15 mL 03/09/24 (3 mL) subcutaneous pen lisinopril 20 mg tablet 20 mg PO DAILY #30 tabs 03/09/24 oxycodone 5 mg tablet 5 mg PO Q4HR PRN Pain 5 to 7 #20 03/09/24 tabs LABS 03/09/24 06:03 03/09/24 06:03 Discharge Plan Discharge Patient Disposition: [facility] DC/Xfer Condition: Good Prescriptions: New acetaminophen 325 mg Tablet 650 mg PO Q4HR PRN (Reason: Pain 1 to 4, or Fever) Qty: 30 0RF ascorbic acid (vitamin C) [Vitamin C] 500 mg Tablet 500 mg PO DAILY Qty: 30 0RF cholecalciferol (vitamin D3) 125 mcg (5,000 unit) Capsule 5,000 unit PO DAILY Qty: 30 0RF citalopram 20 mg Tablet 20 mg PO DAILY Qty: 30 0RF docusate sodium 250 mg Capsule 250 mg PO DAILY Qty: 30 0RF guaifenesin [Mucinex] 600 mg Tablet Extended Release 12hr 600 mg PO BID Qty: 60 0RF lisinopril 20 mg Tablet 20 mg PO DAILY Qty: 30 0RF oxycodone 5 mg Tablet 5 mg PO Q4HR PRN (Reason: Pain 5 to 7) Qty: 20 0RF insulin glargine-yfgn 100 unit/mL (3 mL) Insulin Pen 10 unit subcut QPM Qty: 15 0RF Continued albuterol sulfate [Ventolin HFA] 200 PUFFS/18 GM HFA aerosol inhaler 2 inh inhalation PRN PRN (Reason: Asthma) Discontinued lisinopril [Zestril] 20 MG tablet 40 mg ORAL DAILY Humulin 70/30 U-100 KwikPen 100 UNIT/ML insulin pen 14 - 18 units subcut BID Rx Instructions: USES 12-14 UNITS BASED ON CARBS AND SLIDING SCALE citalopram 20 mg tablet 20 mg PO DAILY No Action cholecalciferol (vitamin D3) 5,000 UNIT capsule 1 tab ORAL DAILY loratadine 10 MG tablet 10 mg PO DAILY PRN (Reason: ALLERGIES) ascorbic acid (vitamin C) 500 MG capsule 1 tab PO DAILY PRN (Reason: ILLNESS) Activity Restrictions/Additional Instructions: Diet: Regular Print Language: Dominican Patient Instructions: ED Anemia Type Not Specified Stand Alone Forms: SNF Discharge, PCP List
[2024-03-09] MEDS ORDERED: DOCUSATE SODIUM 250 MG CAPSULE PO SCH (14:20)
== END 2024-03-09 14:11 ==
LOC: MS2 16:39 → ED 16:39 → MS2 03-07 14:20
PROVIDERS: ADMIT Physician Assistant Medical; ATTEND Physician Assistant Medical
DX: E11.9 Type 2 diabetes mellitus without complications; I95.1 Orthostatic hypotension; E87.5 Hyperkalemia; R35.89 Other polyuria; D64.9 Anemia, unspecified; J90 Pleural effusion, not elsewhere classified; N28.9 Disorder of kidney and ureter, unspecified; Z79.4 Long term (current) use of insulin; Z96.651 Presence of right artificial knee joint; D46.9 Myelodysplastic syndrome, unspecified; R91.8 Other nonspecific abnormal finding of lung field; R06.09 Other forms of dyspnea; I10 Essential (primary) hypertension